=== PATIENT | female | born 1935 | race Caucasian/White ===

== ENCOUNTER 2019-09-01 11:59 | Inpatient (IN) | payer OTHER ==
[2019-09-01 12:29] VITALS: BMI 22.6
--- NOTE | 2019-09-01 13:22 | PDOC ---
History of Present Illness - General Chief Complaint: CVA/TIA Stated Complaint: LT SIDE WEAKNESS Time Seen by Provider: 09/01/19 12:36 - History of Present Illness Initial Comments: Marie Gloria is an 84yo woman with a PMH of NIDDM, HTN, Alzheimers who presents with left-sided weakness and arm shaking today. Ms Gloria is Israeli -speaking and her daughter stated that she would translate. According to her daughter, Ms Gloria was having difficulty walking due to her left side "drooping" this morning; she needed significant assistance to walk as she was falling to the side. The symptoms started at 8:15 this morning. The daughter took the pt to her PMD in [facility], at which point her symptoms were unchanged. The PMD called an ambulance to bring her to the nearest ED, but the pt and her daughter felt the ambulance was taking too long and drove to [facility]. At this time, Ms Gloria's weakness has resolved. However, her daughter notes that her hands are shaking, which she has never seen before. Otherwise, the pt reports that she is feeling well. She denies any numbness, tingling, vertigo, chest pain, difficulty walking, difficulty speaking or changes in voice, or other symptoms. NIH Stroke Scale - Last Known Well Date/Time & Onset Date Last Known Well: 09/01/19 Time Last Known Well: 08:00 - Initial Evaluation Level of consciousness: Alert Ask patient the month and their age: Answers both correctly Ask patient to open & close eyes; make fist and let go: Obeys both correctly Best gaze (horizontal eye movement): Normal Visual field testing: No visual field loss Facial paresis (Show teeth/raise eyebrows/close eyes tight): Normal symmetrical movement Motor Function: Left Arm: Normal Motor Function: Right Arm: Normal (extends arm 90 (or 45) degrees for 10 seconds without drift Motor Function: Left Leg: Normal (extends leg 30 degrees for 5 seconds without drift) Motor Function: Right Leg: Normal (extends leg 30 degrees for 5 seconds without drift) Limb Ataxia: No ataxia Sensory(Use pinprick test arms,legs,trunk,face/side to side): Normal Best language (Describe picture, name items, read sentences): No Aphasia Dysarthria (read several words): Normal articulation Extinction and Inattention: No abnormality - Total Score NIH Stroke Scale Score: 0 Past History - Past Medical History Allergies/Adverse Reactions: Allergies Allergy/AdvReac Type Severity Reaction Status Date / Time No Known Allergies Allergy Verified 09/01/19 12:33 Home Medications: Ambulatory Orders Amlodipine Besylate 5 mg PO DAILY 09/01/19 Aspirin [ASA -] 81 mg PO DAILY 09/01/19 Donepezil HCl 10 mg PO DAILY 09/01/19 Lisinopril/Hydrochlorothiazide [Lisinopril-Hctz 20-12.5 mg Tab] 1 each PO DAILY 09/01/19 Loratadine [Allergy Relief] 10 mg PO DAILY 09/01/19 Metformin HCl [Glucophage] 500 mg PO TID 09/01/19 Multivitamin [One-Daily Multi-Vitamin] 1 each PO DAILY 09/01/19 Simvastatin 20 mg PO HS 09/01/19 Tramadol HCl 50 mg PO TID 09/01/19 COPD: No Diabetes: Yes HTN: Yes - Immunization History Immunization Up to Date: No - Psycho Social/Smoking Cessation Hx Smoking History: Never smoked Have you smoked in the past 12 months: No Information on smoking cessation initiated: No Hx Alcohol Use: No Drug/Substance Use Hx: No Review of Systems - Review of Systems Comments:: General: No fevers, no chills, no weight or appetite change, no malaise HEENT: No changes in vision, no changes in hearing, no congestion, no sore throat CV: No chest pain, no palpitations, no LE edema Pulm: No SOB, no cough, no wheezing GI: No nausea or vomiting, no change in bowel habits, no melena : No frequency, no urgency, no dysuria Musc: No back pain, no joint swelling, no recent injury Skin: No rash, no lesions, no erythema Endo: No excessive thirst, no heat/cold intolerance Heme: No unusual bruising or bleeding, no swollen glands Neuro: See HPI Vasc: No claudication Psych: No recent change in mood, no SI or HI *Physical Exam - Vital Signs Last Vital Signs Temp Pulse Resp BP Pulse Ox 97.9 F 82 16 117/96 96 09/01/19 12:25 09/01/19 12:25 09/01/19 12:25 09/01/19 12:25 09/01/19 12:25 - Physical Exam Comments: General: Comfortable, no acute distress HEENT: PERRL, EOMI, MMM, voice normal, normal neck ROM, visual nuñez intact Cards: RRR, no murmur appreciated Pulm: Comfortable on room air, clear to auscultation bilaterally Abd: Soft, nontender, nondistended Ext: Atraumatic. No LE edema. ROM intact. Strength 5/5 and equal bilaterally Vasc: Extremities WWP. Skin: Normal color, no rashes or lesions Neuro: A&Ox3, CN grossly intact, normal speech, motor/sensory grossly intact and symmetric Psych: Mood appropriate to situation ED Treatment Course - LABORATORY CBC & Chemistry Diagram: 09/01/19 13:15 09/01/19 13:15 - RADIOLOGY Radiology Studies Ordered: Category Date Time Status HEAD CT (STROKE) [CT] Stat CT Scan 09/01/19 12:49 Ordered Medical Decision Making - Medical Decision Making 09/01/19 12:54 Marie Gloria is an 84yo woman with a PMH of NIDDM, HTN, Alzheimers who presents with left-sided weakness and arm shaking today starting at 8:15am. The symptoms have since resolved. - Symptoms appear to have resolved, may be TIA - Code roche called for immediate CT head - CBC, CMP, coags, lipids, trop, EKG, CXR 09/01/19 13:30 - CT head negative for acute changes - Labs pending 09/01/19 14:50 - Call placed to neurology regarding consult, waiting for call back - EKG w/ NSR, HR 66, normal axis, normal intervals, no ST changes - Labs reveiwed. No concerning abnormalities appreciated - Call placed to Dr Israel for admission 09/01/19 15:07 - Dr Israel will accept for admission - Dr Mast returned call for neuro, speaking to Dr Barrientos, will see pt Discussed with Dr Iliana Martini PGY2 Discharge - Discharge Information Problems reviewed: Yes Clinical Impression/Diagnosis: Transient ischemic attack Condition: Stable - Admission Yes - Follow up/Referral - Patient Discharge Instructions - Post Discharge Activity
[2019-09-01 13:42] LABS: BASO % 0.5 % (0-2.0); EOS % 0.5 % (0-4.5); HEMATOCRIT 36.1 % (32.4-45.2); HEMOGLOBIN 11.7 GM/dL (10.7-15.3); LYMPH % 22.2 % (8-40); MCH 26.6 pg (25.7-33.7); MCHC 32.4 g/dl (32.0-36.0); MEAN CELL VOLUME 82.1 fl (80-96); MEAN PLT VOLUME 8.1 fl (7.5-11.1); MONO % 6.5 % (3.8-10.2); NEUT % 70.3 % (42.8-82.8); PLATELET COUNT 299 K/MM3 (134-434); RBC 4.39 M/mm3 (3.60-5.2); RDW 14.3 % (11.6-15.6); WHITE BLOOD COUNT 7.1 K/mm3 (4.0-10.0)
[2019-09-01] MEDS: SODIUM CHLORIDE 1,000 ML IV SCH (13:43)
[2019-09-01 13:58] LABS: INR 1.01 (0.83-1.09); PROTHROMBIN TIME (PATIENT) 11.9 SEC (9.7-13.0)
[2019-09-01 14:01] LABS: ACTIVATED PTT 31.7 SECONDS (25.2-36.5)
[2019-09-01 14:08] LABS: BILIRUBIN,TOTAL 0.6 mg/dL (0.2-1); BLOOD UREA NITROGEN 15.9 mg/dL (7-18); CALCIUM 9.7 mg/dL (8.5-10.1); POTASSIUM 4.7 mmol/L (3.5-5.1); TOT PROT 7.3 g/dl (6.4-8.2)
[2019-09-01 14:10] LABS: CHOLESTEROL 158 mg/dL (50-200)
--- NOTE | 2019-09-01 14:29 | PDOC ---
Attending Attestation - Resident Resident Name: Erin Martini - ED Attending Attestation I have performed the following: I have examined & evaluated the patient, The case was reviewed & discussed with the resident, I agree w/resident's findings & plan, Exceptions are as noted - HPI HPI: 09/01/19 14:22 84yo female with hx of dementia, dm, htn who woke up at 8am and was unable to move her L arm and leg. Pt states symptoms resolved in less than 5 min. Last normal was around 11p last night and woke up feeling L sided weakness. Pt currently denies hoang, weakness, paresthesias, neck pain, cp/sob, abd pain. No n/v /d. No dysuria. Pt denies all other complaints. - Physicial Exam PE: 09/01/19 14:25 Gen: awake, alert, oriented, nad heent: PERRL, EOMI, MMM neck: supple, no midline ttp, no stepoffs, FROM heart: +s1s2 reg lungs: cta b/l abd: soft, nt/nd +bs ext: no c/c/e neuro: cn ii-xii grossly intact, no focal deficits, muscle strength 5/5 UE and LE, normal finger to nose, sensation intact - Medical Decision Making 09/01/19 14:26 a/p: 84yo female with L sided weakness which has since resolved -concern for TIA -sent for head ct - no acute findings -labs pending -ekg -cxr -will monitor and reassess -pt will need a neuro eval and to stay for further eval of tia -no tpa given rapid resolution of symptoms -current NIHSS = 0 09/01/19 14:59 labs reviewed cxr pending no acute findings on head ct concerning for cva call placed to DR. Joseph and to Dr. Israel for admission 09/01/19 15:[address] Hodge who will see the patient in consut resident discussed the case with Dr. Israel who accepts pt to service Heart Score/ECG Review - ECG Intrepretation Comment:: 09/01/19 14:29 sinus at 66, nl axis, nl interval, no acute st/t wave findings
[2019-09-01 15:58] LABS: EPI CELLS 0.5 /HPF (0-5/HPF); HYALINE CASTS 0 /lpf (0-8); URINE APPEARANCE CLEAR; URINE BACTERIA 0.7 /hpf (NEGATIVE); URINE BILIRUBIN NEGATIVE (NEGATIVE); URINE COLOR YELLOW; URINE GLUCOSE (UA) NEGATIVE (NEGATIVE); URINE KETONE NEGATIVE (NEGATIVE); URINE LEUK ESTERASE 2+ (NEGATIVE); URINE NITRITE NEGATIVE (NEGATIVE); URINE PROTEIN NEGATIVE (NEGATIVE); URINE RBC 1 /hpf (0-4); URINE UROBILINOGEN 0.2 mg/dL (0.2-1.0); URINE WBC 5 /hpf (0-5)
--- NOTE | 2019-09-01 18:02 | HP ---
Admitting History and Physical - Primary Care Physician PCP: Adan Israel - Admission History of Present Illness: Marie Gloria is an 84yo woman with a PMH of NIDDM, HTN, Alzheimers who presents with left-sided weakness and arm shaking today. Ms Gloria is Telugu -speaking and her daughter stated that she would translate. Per the daughter, Ms Gloria was having difficulty walking and her left side was "drooping" this morning. The daughter states that the pt's grandson called her stating that these symptoms started at 8:15 this morning. The daughter took Ms Gloria to her PMD, where she was seen at 10am. At that time, her symptoms were unchanged. The pt was having significant difficulty walking and needed to be held up while walking. Her daughter is not aware of any other recent symptoms. - Past Medical History Cardiovascular: Yes: HTN Endocrine: Yes: Diabetes Mellitus - Smoking History Smoking history: Never smoked Have you smoked in the past 12 months: No - Alcohol/Substance Use Hx Alcohol Use: No Home Medications - Allergies Allergies/Adverse Reactions: Allergies Allergy/AdvReac Type Severity Reaction Status Date / Time No Known Allergies Allergy Verified 09/01/19 12:33 - Home Medications Home Medications: Ambulatory Orders Amlodipine Besylate 5 mg PO DAILY 09/01/19 Aspirin [ASA -] 81 mg PO DAILY 09/01/19 Donepezil HCl 10 mg PO DAILY 09/01/19 Lisinopril/Hydrochlorothiazide [Lisinopril-Hctz 20-12.5 mg Tab] 1 each PO DAILY 09/01/19 Loratadine [Allergy Relief] 10 mg PO DAILY 09/01/19 Metformin HCl [Glucophage] 500 mg PO TID 09/01/19 Multivitamin [One-Daily Multi-Vitamin] 1 each PO DAILY 09/01/19 Simvastatin 20 mg PO HS 09/01/19 Tramadol HCl 50 mg PO TID 09/01/19 Physical Examination Vital Signs: Vital Signs Temperature 97.9 F 09/01/19 12:25 Pulse Rate 82 09/01/19 12:25 Respiratory Rate 16 09/01/19 12:25 Blood Pressure 117/96 09/01/19 12:25 O2 Sat by Pulse Oximetry (%) 96 09/01/19 12:25 Constitutional: Yes: No Distress HENT: Yes: Atraumatic Neck: Yes: Supple Cardiovascular: Yes: Regular Rate and Rhythm Respiratory: Yes: CTA Bilaterally Gastrointestinal: Yes: Normal Bowel Sounds Extremities: Yes: WNL Neurological: Yes: Alert, Oriented Labs: CBC, BMP 09/01/19 13:15 09/01/19 13:15 Problem List - Problems (1) Transient ischemic attack Assessment/Plan: doing well neuro consult neuro checks Code(s): G45.9 - TRANSIENT CEREBRAL ISCHEMIC ATTACK, UNSPECIFIED (2) HTN (hypertension) Assessment/Plan: on meds monitor Code(s): I10 - ESSENTIAL (PRIMARY) HYPERTENSION (3) Diabetes Assessment/Plan: on insulin bgms Code(s): E11.9 - TYPE 2 DIABETES MELLITUS WITHOUT COMPLICATIONS Assessment/Plan Laboratory Tests 09/01/19 09/01/19 09/01/19 13:15 13:15 13:15 WBC 7.1 RBC 4.39 Hgb 11.7 Hct 36.1 MCV 82.1 MCH 26.6 MCHC 32.4 RDW 14.3 Plt Count 299 MPV 8.1 Absolute Neuts (auto) 5.0 Neutrophils % 70.3 Lymphocytes % 22.2 Monocytes % 6.5 Eosinophils % 0.5 Basophils % 0.5 Nucleated RBC % 0 PT with INR 11.90 INR 1.01 PTT (Actin FS) 31.7 Sodium Potassium Chloride Carbon Dioxide Anion Gap BUN Creatinine Est GFR (CKD-EPI)AfAm Est GFR (CKD-EPI)NonAf Random Glucose Calcium Total Bilirubin AST ALT Alkaline Phosphatase Creatine Kinase 49 Troponin I < 0.02 Total Protein Albumin Triglycerides Cholesterol 158 Total LDL Cholesterol HDL Cholesterol Urine Color Urine Appearance Urine pH Ur Specific [place] Urine Protein Urine Glucose (UA) Urine Ketones Urine Blood Urine Nitrite Urine Bilirubin Urine Urobilinogen Ur Leukocyte Esterase Urine WBC (Auto) Urine RBC (Auto) Urine Casts (Auto) U Epithel Cells (Auto) Urine Bacteria (Auto) Blood Type Antibody Screen 09/01/19 09/01/19 09/01/19 13:15 13:15 13:15 WBC RBC Hgb Hct MCV MCH MCHC RDW Plt Count MPV Absolute Neuts (auto) Neutrophils % Lymphocytes % Monocytes % Eosinophils % Basophils % Nucleated RBC % PT with INR INR PTT (Actin FS) Sodium 140 Potassium 4.7 Chloride 105 Carbon Dioxide 30 Anion Gap 5 L BUN 15.9 Creatinine 1.0 Est GFR (CKD-EPI)AfAm 60.76 Est GFR (CKD-EPI)NonAf 52.42 Random Glucose 130 H Calcium 9.7 Total Bilirubin 0.6 AST 15 ALT 16 Alkaline Phosphatase 57 Creatine Kinase Troponin I Total Protein 7.3 Albumin 4.0 Triglycerides Cholesterol Total LDL Cholesterol 71 HDL Cholesterol 68 H Urine Color Urine Appearance Urine pH Ur Specific [place] Urine Protein Urine Glucose (UA) Urine Ketones Urine Blood Urine Nitrite Urine Bilirubin Urine Urobilinogen Ur Leukocyte Esterase Urine WBC (Auto) Urine RBC (Auto) Urine Casts (Auto) U Epithel Cells (Auto) Urine Bacteria (Auto) Blood Type Antibody Screen 09/01/19 09/01/19 09/01/19 13:15 13:15 15:06 WBC RBC Hgb Hct MCV MCH MCHC RDW Plt Count MPV Absolute Neuts (auto) Neutrophils % Lymphocytes % Monocytes % Eosinophils % Basophils % Nucleated RBC % PT with INR INR PTT (Actin FS) Sodium Potassium Chloride Carbon Dioxide Anion Gap BUN Creatinine Est GFR (CKD-EPI)AfAm Est GFR (CKD-EPI)NonAf Random Glucose Calcium Total Bilirubin AST ALT Alkaline Phosphatase Creatine Kinase Troponin I Total Protein Albumin Triglycerides 108 Cholesterol Total LDL Cholesterol HDL Cholesterol Urine Color Yellow Urine Appearance Clear Urine pH 8.0 Ur Specific [place] 1.007 L Urine Protein Negative Urine Glucose (UA) Negative Urine Ketones Negative Urine Blood Negative Urine Nitrite Negative Urine Bilirubin Negative Urine Urobilinogen 0.2 Ur Leukocyte Esterase 2+ H Urine WBC (Auto) 5 Urine RBC (Auto) 1 Urine Casts (Auto) 0 U Epithel Cells (Auto) 0.5 Urine Bacteria (Auto) 0.7 Blood Type A POSITIVE Antibody Screen Negative Active Medications Generic Name Dose Route Start Last Admin Trade Name Charisma PRN Reason Stop Dose Admin Sodium Chloride 1,000 mls @ 42 mls/hr 09/01/19 13:00 09/01/19 13:43 Normal Saline - IV 42 mls/hr ASDIR GABE Administration Active Medications Generic Name Dose Route Start Last Admin Trade Name Freq PRN Reason Stop Dose Admin Amlodipine Besylate 5 mg 09/02/19 10:00 09/02/19 10:36 Norvasc - PO 5 mg DAILY GABE Administration Aspirin 81 mg 09/02/19 10:00 09/02/19 10:37 Asa - PO 81 mg DAILY GABE Administration Donepezil HCl 10 mg 09/02/19 10:00 09/02/19 10:36 Aricept - PO 10 mg DAILY GABE Administration Hydrochlorothiazide 12.5 mg 09/02/19 10:00 09/02/19 10:36 Hctz - PO 12.5 mg DAILY GABE Administration Lisinopril 20 mg 09/02/19 10:00 09/02/19 10:36 Prinivil PO 20 mg DAILY GABE Administration Metformin HCl 500 mg 09/01/19 22:00 09/02/19 17:14 Glucophage - PO 500 mg TIDAC GABE Administration
--- NOTE | 2019-09-01 19:21 | CON.NEURO ---
Consult Consult Specialty:: NEUROLOGY-GUNJAN DÍAZ - History of Present Illness History of Present Illness: Marie Gloria is an 84yo woman with a PMH of NIDDM, HTN, Alzheimers who presents with left-sided weakness and arm shaking today. Ms Gloria is Sinhala -speaking and her daughter stated that she would translate. Per the daughter, Ms Gloria was having difficulty walking and her left side was "drooping" this morning. The daughter states that the pt's grandson called her stating that these symptoms started at 8:15 this morning. The daughter took Ms Gloria to her PMD, where she was seen at 10am. At that time, her symptoms were unchanged. The pt was having significant difficulty walking and needed to be held up while walking. Her daughter is not aware of any other recent symptoms. Denies all neurologic complaints now, daughter tells me she has remitted completely. - Alcohol/Substance Use Hx Alcohol Use: No - Smoking History Smoking history: Never smoked Have you smoked in the past 12 months: No Home Medications - Allergies Allergies/Adverse Reactions: Allergies Allergy/AdvReac Type Severity Reaction Status Date / Time No Known Allergies Allergy Verified 09/01/19 12:33 - Home Medications Home Medications: Ambulatory Orders Amlodipine Besylate 5 mg PO DAILY 09/01/19 Aspirin [ASA -] 81 mg PO DAILY 09/01/19 Donepezil HCl 10 mg PO DAILY 09/01/19 Lisinopril/Hydrochlorothiazide [Lisinopril-Hctz 20-12.5 mg Tab] 1 each PO DAILY 09/01/19 Loratadine [Allergy Relief] 10 mg PO DAILY 09/01/19 Metformin HCl [Glucophage] 500 mg PO TID 09/01/19 Multivitamin [One-Daily Multi-Vitamin] 1 each PO DAILY 09/01/19 Simvastatin 20 mg PO HS 09/01/19 Tramadol HCl 50 mg PO TID 09/01/19 Physical Exam-Neuro Vital Signs: Vital Signs Temperature 97.9 F 09/01/19 12:25 Pulse Rate 82 09/01/19 12:25 Respiratory Rate 16 09/01/19 12:25 Blood Pressure 117/96 09/01/19 12:25 O2 Sat by Pulse Oximetry (%) 96 09/01/19 12:25 Labs: CBC, BMP 09/01/19 13:15 09/01/19 13:15 INR, PTT INR 1.01 (0.83-1.09) 09/01/19 13:15 - Neuro Exam Level Of Consciousness: Yes: Alert, Oriented to Person Eyes: Yes: JOELLEN Speech: WNL Mini Mental Exam: Impaired cognition-STM/concentration impaired DTR's: 0 Right Achilles ( bilat knees-2+), 1+ Left Bicep, 1+ Right Bicep, 1+ Left Tricep, 1+ Right Tricep, 1+ Left Brachioradialis, 1+ Right Brachioradialis , 1+ Left Achilles Motor Strength: 5/5: Left Arm, Right Arm, Left Leg, Right Leg Gait: Other (unsteady, tends to tilt to left) Imaging - Results Cat Scan: Report Reviewed (plenum sphen.meningioma only.) Assessment/Plan Transient left sided weakness, likely pure motor right subcort TIA, less likely left cerebellar location TIA Suggest: MRI brain/Carotud ultrasound ASA 81mg daily. Thank you, Carin Hodge MD
[2019-09-01] MEDS ORDERED: metFORMIN HCL 500 MG TABLET (FP) ONE (22:40)
[2019-09-01] MEDS: metFORMIN HCL 500 MG TABLET (FP) PO SCH (23:02)
[2019-09-02] MEDS: metFORMIN HCL 500 MG TABLET (FP) PO SCH ×3 (06:29→17:14)
[2019-09-02] MEDS ORDERED: PATIENT'S OWN MEDICATION (NON-FORMULARY) (Lisinopril/Hydrochlorothiazide [Lisinopril-Hctz PO SCH (10:00)
[2019-09-02] MEDS: HYDROCHLOROTHIAZIDE 12.5 MG CAPSULE (FP) PO SCH (10:36)
[2019-09-02] MEDS: amLODIPine BESYLATE 5 MG TABLET (FP) PO SCH (10:36)
[2019-09-02] MEDS: LISINOPRIL 20 MG TABLET (FP) PO SCH (10:36)
[2019-09-02] MEDS: DONEPEZIL HCL 10 MG TABLET (FP) PO SCH (10:36)
[2019-09-02] MEDS: ASPIRIN 81 MG CHEWABLE TABLETS PO SCH (10:37)
--- NOTE | 2019-09-02 10:41 | EKG ---
Test Reason : Blood Pressure : / mmHG Vent. Rate : 066 BPM Atrial Rate : 066 BPM P-R Int : 128 ms QRS Dur : 074 ms QT Int : 404 ms P-R-T Axes : 056 038 061 degrees QTc Int : 423 ms NORMAL SINUS RHYTHM NORMAL ECG Confirmed by MD ROXY, EARNEST ([id number]) on 09/02/2019 10:41:15 AM Referred By: Confirmed By:EARNEST RAMSEY MD
--- NOTE | 2019-09-02 12:20 | PN ---
Progress Note, Physician - Current Medication List Current Medications: Active Medications Amlodipine Besylate (Norvasc -) 5 mg PO DAILY [facility] Last Admin: 09/02/19 10:36 Dose: 5 mg Aspirin (Asa -) 81 mg PO DAILY [facility] Last Admin: 09/02/19 10:37 Dose: 81 mg Donepezil HCl (Aricept -) 10 mg PO DAILY [facility] Last Admin: 09/02/19 10:36 Dose: 10 mg Hydrochlorothiazide (Hctz -) 12.5 mg PO DAILY [facility] Last Admin: 09/02/19 10:36 Dose: 12.5 mg Sodium Chloride (Normal Saline -) 1,000 mls @ 42 mls/hr IV ASDIR [facility] Last Admin: 09/01/19 13:43 Dose: 42 mls/hr Lisinopril (Prinivil) 20 mg PO DAILY [facility] Last Admin: 09/02/19 10:36 Dose: 20 mg Metformin HCl (Glucophage -) 500 mg PO TIDAC [facility] Last Admin: 09/02/19 10:36 Dose: 500 mg - Objective Vital Signs: Vital Signs Temperature 98.2 F 09/02/19 08:38 Pulse Rate 90 09/02/19 08:38 Respiratory Rate 18 09/02/19 08:38 Blood Pressure 153/76 09/02/19 08:38 O2 Sat by Pulse Oximetry (%) 97 09/02/19 10:00 Constitutional: Yes: No Distress HENT: Yes: Atraumatic Neck: Yes: Supple Cardiovascular: Yes: Regular Rate and Rhythm Respiratory: Yes: CTA Bilaterally Gastrointestinal: Yes: Normal Bowel Sounds Extremities: Yes: WNL Edema: No Peripheral Pulses WNL: Yes Neurological: Yes: Alert, Oriented Labs: CBC, BMP 09/01/19 13:15 09/01/19 13:15 INR, PTT INR 1.01 (0.83-1.09) 09/01/19 13:15 Problem List - Problems (1) Transient ischemic attack Assessment/Plan: doing well neuro consult neuro checks Code(s): G45.9 - TRANSIENT CEREBRAL ISCHEMIC ATTACK, UNSPECIFIED (2) Diabetes Assessment/Plan: on insulin bgms Code(s): E11.9 - TYPE 2 DIABETES MELLITUS WITHOUT COMPLICATIONS (3) HTN (hypertension) Assessment/Plan: on meds monitor Code(s): I10 - ESSENTIAL (PRIMARY) HYPERTENSION
[2019-09-02] MEDS: SODIUM CHLORIDE 1,000 ML IV SCH (17:16)
[2019-09-03] MEDS: metFORMIN HCL 500 MG TABLET (FP) PO SCH ×3 (07:01→17:28)
[2019-09-03] MEDS: DONEPEZIL HCL 10 MG TABLET (FP) PO SCH (10:41)
[2019-09-03] MEDS: HYDROCHLOROTHIAZIDE 12.5 MG CAPSULE (FP) PO SCH (10:41)
[2019-09-03] MEDS: LISINOPRIL 20 MG TABLET (FP) PO SCH (10:41)
[2019-09-03] MEDS: ASPIRIN 81 MG CHEWABLE TABLETS PO SCH (10:41)
[2019-09-03] MEDS: amLODIPine BESYLATE 5 MG TABLET (FP) PO SCH (10:41)
[2019-09-03] MEDS ORDERED: ACETAMINOPHEN 325 MG TABLET (FP) PO PRN (13:22)
--- NOTE | 2019-09-03 14:49 | PN ---
Progress Note, Physician - Current Medication List Current Medications: Active Medications Acetaminophen (Tylenol -) 650 mg PO Q6H PRN PRN Reason: PAIN 1-5 Amlodipine Besylate (Norvasc -) 5 mg PO DAILY [facility] Last Admin: 09/03/19 10:41 Dose: 5 mg Aspirin (Asa -) 81 mg PO DAILY [facility] Last Admin: 09/03/19 10:41 Dose: 81 mg Donepezil HCl (Aricept -) 10 mg PO DAILY [facility] Last Admin: 09/03/19 10:41 Dose: 10 mg Hydrochlorothiazide (Hctz -) 12.5 mg PO DAILY [facility] Last Admin: 09/03/19 10:41 Dose: 12.5 mg Lisinopril (Prinivil) 20 mg PO DAILY [facility] Last Admin: 09/03/19 10:41 Dose: 20 mg Metformin HCl (Glucophage -) 500 mg PO TIDAC [facility] Last Admin: 09/03/19 10:41 Dose: 500 mg - Objective Vital Signs: Vital Signs Temperature 98.2 F 09/03/19 10:37 Pulse Rate 90 09/03/19 10:37 Respiratory Rate 18 09/03/19 10:37 Blood Pressure 140/67 09/03/19 10:37 O2 Sat by Pulse Oximetry (%) 97 09/03/19 10:00 Constitutional: Yes: No Distress HENT: Yes: Atraumatic Neck: Yes: Supple Cardiovascular: Yes: Regular Rate and Rhythm Respiratory: Yes: CTA Bilaterally Gastrointestinal: Yes: Normal Bowel Sounds Extremities: Yes: WNL Edema: No Neurological: Yes: Alert, Oriented Labs: CBC, BMP 09/01/19 13:15 09/01/19 13:15 INR, PTT INR 1.01 (0.83-1.09) 09/01/19 13:15 Problem List - Problems (1) Transient ischemic attack Assessment/Plan: doing well Code(s): G45.9 - TRANSIENT CEREBRAL ISCHEMIC ATTACK, UNSPECIFIED (2) Diabetes Assessment/Plan: on insulin bgms Code(s): E11.9 - TYPE 2 DIABETES MELLITUS WITHOUT COMPLICATIONS (3) HTN (hypertension) Assessment/Plan: on meds monitor Code(s): I10 - ESSENTIAL (PRIMARY) HYPERTENSION
--- NOTE | 2019-09-03 23:08 | PN ---
Progress Note, Physician History of Present Illness: Marie Gloria is an 84yo woman with a PMH of NIDDM, HTN, Alzheimers who presents with left-sided weakness and arm shaking today. Ms Gloria is Haitian -speaking and her daughter stated that she would translate. Per the daughter, Ms Gloria was having difficulty walking and her left side was "drooping" this morning. The daughter states that the pt's grandson called her stating that these symptoms started at 8:15 this morning. The daughter took Ms Gloria to her PMD, where she was seen at 10am. At that time, her symptoms were unchanged. The pt was having significant difficulty walking and needed to be held up while walking. Her daughter is not aware of any other recent symptoms. Denies all neurologic complaints now, daughter tells me she has remitted completely. 09/03/19 Reports she feels well, is able to ambulate to toilet but noted to have slight LLE "dragging". Exam- LLE-5-/5, rest v5/5 MRI brain reviewed- ?? acute right subcortical lacunar infarct, i am not clear whether it is old/new(unable to bring up DWI sequence), await official report. Would cont. ASA 81mg daily, able to be d/melissa. Thank you, Carin Hodge MD - Current Medication List Current Medications: Active Medications Acetaminophen (Tylenol -) 650 mg PO Q6H PRN PRN Reason: PAIN 1-5 Amlodipine Besylate (Norvasc -) 5 mg PO DAILY [facility] Last Admin: 09/03/19 10:41 Dose: 5 mg Aspirin (Asa -) 81 mg PO DAILY [facility] Last Admin: 09/03/19 10:41 Dose: 81 mg Donepezil HCl (Aricept -) 10 mg PO DAILY [facility] Last Admin: 09/03/19 10:41 Dose: 10 mg Hydrochlorothiazide (Hctz -) 12.5 mg PO DAILY [facility] Last Admin: 09/03/19 10:41 Dose: 12.5 mg Lisinopril (Prinivil) 20 mg PO DAILY [facility] Last Admin: 09/03/19 10:41 Dose: 20 mg Metformin HCl (Glucophage -) 500 mg PO TIDAC [facility] Last Admin: 09/03/19 17:28 Dose: 500 mg - Objective Vital Signs: Vital Signs Temperature 98.1 F 09/03/19 22:00 Pulse Rate 76 09/03/19 22:00 Respiratory Rate 18 09/03/19 22:00 Blood Pressure 138/60 09/03/19 22:00 O2 Sat by Pulse Oximetry (%) 96 09/03/19 21:00 Labs: CBC, BMP 09/01/19 13:15 09/01/19 13:15 INR, PTT INR 1.01 (0.83-1.09) 09/01/19 13:15
[2019-09-04] MEDS: metFORMIN HCL 500 MG TABLET (FP) PO SCH ×2 (06:19→12:05)
[2019-09-04 07:39] LABS: BASO % 0.7 % (0-2.0); EOS % 1.6 % (0-4.5); HEMATOCRIT 34.7 % (32.4-45.2); HEMOGLOBIN 11.4 GM/dL (10.7-15.3); LYMPH % 25.7 % (8-40); MCH 26.6 pg (25.7-33.7); MCHC 32.8 g/dl (32.0-36.0); MEAN CELL VOLUME 81.2 fl (80-96); MEAN PLT VOLUME 8.8 fl (7.5-11.1); MONO % 7.5 % (3.8-10.2); NEUT % 64.5 % (42.8-82.8); PLATELET COUNT 281 K/MM3 (134-434); RBC 4.27 M/mm3 (3.60-5.2); RDW 14.3 % (11.6-15.6); WHITE BLOOD COUNT 7.9 K/mm3 (4.0-10.0)
[2019-09-04 08:34] LABS: ALBUMIN 3.6 g/dl (3.4-5.0); BILIRUBIN,TOTAL 0.5 mg/dL (0.2-1); BLOOD UREA NITROGEN 26.6 mg/dL (7-18); CALCIUM 9.5 mg/dL (8.5-10.1); POTASSIUM 4.6 mmol/L (3.5-5.1); TOT PROT 6.7 g/dl (6.4-8.2)
[2019-09-04 09:24] VITALS: BP 141/67; PULSE 96; TEMP 98.1
[2019-09-04] MEDS: DONEPEZIL HCL 10 MG TABLET (FP) PO SCH (09:25)
[2019-09-04] MEDS: HYDROCHLOROTHIAZIDE 12.5 MG CAPSULE (FP) PO SCH (09:25)
[2019-09-04] MEDS: LISINOPRIL 20 MG TABLET (FP) PO SCH (09:25)
[2019-09-04] MEDS: amLODIPine BESYLATE 5 MG TABLET (FP) PO SCH (09:25)
[2019-09-04] MEDS: ASPIRIN 81 MG CHEWABLE TABLETS PO SCH (09:25)
--- NOTE | 2019-09-04 16:34 | DS ---
Physical Examination Vital Signs: Vital Signs Temperature 98.1 F 09/04/19 09:24 Pulse Rate 96 H 09/04/19 09:24 Respiratory Rate 18 09/04/19 09:24 Blood Pressure 141/67 09/04/19 09:24 O2 Sat by Pulse Oximetry (%) 98 09/04/19 09:00 HENT: Yes: Atraumatic Neck: Yes: Supple Cardiovascular: Yes: Regular Rate and Rhythm Respiratory: Yes: CTA Bilaterally Gastrointestinal: Yes: Normal Bowel Sounds Extremities: Yes: WNL Edema: No Neurological: Yes: Alert, Oriented Labs: CBC, BMP 09/04/19 06:25 09/04/19 06:25 Discharge Summary Problems reviewed: Yes Reason For Visit: TIA Condition: Stable - Instructions Referrals: Ramon Hodge MD [Staff Physician] - ON STAFF,NOT [Primary Care Provider] - Disposition: VNS/HOME HEALTH CARE - Home Medications Comprehensive Discharge Medication List: Ambulatory Orders Amlodipine Besylate 5 mg PO DAILY 09/01/19 Aspirin [ASA -] 81 mg PO DAILY 09/01/19 Donepezil HCl 10 mg PO DAILY 09/01/19 Lisinopril/Hydrochlorothiazide [Lisinopril-Hctz 20-12.5 mg Tab] 1 each PO DAILY 09/01/19 Loratadine [Allergy Relief] 10 mg PO DAILY 09/01/19 Metformin HCl [Glucophage] 500 mg PO TID 09/01/19 Multivitamin [One-Daily Multi-Vitamin] 1 each PO DAILY 09/01/19 Simvastatin 20 mg PO HS 09/01/19 Tramadol HCl 50 mg PO TID 09/01/19 cleared by neuro to be dc
== END 2019-09-04 13:30 | disposition home health service (06) | DRG 69 ==
LOC: JER 11:59 → JERBED 15:07 → J4S 23:00
PROVIDERS: ADMIT Internal Medicine; ATTEND Internal Medicine
DX: G45.9 Transient cerebral ischemic attack, unspecified (principal); I10 Essential (primary) hypertension; E11.9 Type 2 diabetes mellitus without complications; G30.9 Alzheimer's disease, unspecified; F02.80 Dementia in other diseases classified elsewhere, unspecified severity, without behavioral disturbance, psychotic disturbance, mood disturbance, and anxiety; Z79.84 Long term (current) use of oral hypoglycemic drugs
CPT/HCPCS: 36415; 70450-TC; 70551-TC; 71045-TC-FY; 80053; 81003; 82465; 82550; 83718; 83721; 84478; 84484; 85025; 85610; 85730; 86850; 86900; 86901; 87086; 93005; 93010; 93880-TC; 97116-GP; 97162-GP; 99285-25; J7030

== ENCOUNTER 2019-10-20 12:52 | Inpatient (IN) | payer OTHER ==
[2019-10-20 12:56] VITALS: BMI 22.4
--- NOTE | 2019-10-20 13:06 | PDOC ---
History of Present Illness - General Chief Complaint: Allergic Reaction Stated Complaint: LIP SWOLLEN Time Seen by Provider: 10/20/19 13:06 - History of Present Illness Initial Comments: 10/20/19 13:41 84 year old woman with upper lip swelling and difficulty swallowing that started at 0900 when she woke up. The patient has taken lisinopril for years. She had a prior episode of same symptoms on 09/16/19 that resolved after 2 days and at that time did not have any difficulty swallowing. Since onset she has some voice changes per daughter, notices her voice is deeper and raspy. Patient denies any difficulty breathing but has some difficulty swallowing water this morning. She has no other complaints. ROS GENERAL/CONSTITUTIONAL: No fever or chills. No weakness. HEAD, EYES, EARS, NOSE AND THROAT: + changes in swallowing CARDIOVASCULAR: No chest pain or shortness of breath RESPIRATORY: No cough, wheezing, or hemoptysis. GASTROINTESTINAL: No nausea, vomiting, diarrhea or constipation. GENITOURINARY: No dysuria, frequency, or change in urination. MUSCULOSKELETAL: No joint or muscle swelling or pain. No neck or back pain. SKIN: No rash NEUROLOGIC: No headache, vertigo, loss of consciousness, or change in strength/ sensation. ENDOCRINE: No increased thirst. No abnormal weight change HEMATOLOGIC/LYMPHATIC: No anemia, easy bleeding, or history of blood clots. PE GENERAL: Awake, alert, and fully oriented, in no acute distress HEAD: No signs of trauma, normocephalic, atraumatic EYES: EOMI, sclera anicteric, conjunctiva clear ENT: No uvula edema or deviation FACE: upper lip edema with bilateral cheek swelling NECK: Normal ROM, supple LUNGS: No distress, speaks full sentences, clear to auscultation bilaterally No stridor HEART: Regular rate and rhythm, normal S1 and S2, no murmurs, rubs or gallops, peripheral pulses normal and equal bilaterally. ABDOMEN: Soft, nontender No guarding, no rebound. No masses EXTREMITIES : Normal inspection, Normal range of motion, no edema. No clubbing or cyanosis. NEUROLOGICAL: Cranial nerves II through XII grossly intact. Normal speech, normal gait, no focal sensorimotor deficits SKIN: Warm, Dry, normal turgor, no rashes or lesions noted MDM DDX including but not limited to: angioedema ED Course: Will observe and dose ffp and txa ENT paged, informed of patient have no current recs, cont obs and ffp on reassessment patient with further vocal changes and drooling will need intubation as symptoms continue to progress discussed with patient and daughter who agree to plan Anesthesia paged for intubation Patient intubated by Anesthesiologist mandy and etomidate with propofol post intubation tube confirmed by capnography and auscultation poending confirmatory CXR Lanette Mcmahon, PGY2 Emergency Medicine Past History - Past Medical History Allergies/Adverse Reactions: Allergies Allergy/AdvReac Type Severity Reaction Status Date / Time No Known Allergies Allergy Verified 09/01/19 12:33 Home Medications: Ambulatory Orders Amlodipine Besylate 5 mg PO DAILY 09/01/19 Aspirin [ASA -] 81 mg PO DAILY 09/01/19 Donepezil HCl 10 mg PO DAILY 09/01/19 Lisinopril/Hydrochlorothiazide [Lisinopril-Hctz 20-12.5 mg Tab] 1 each PO DAILY 09/01/19 Loratadine [Allergy Relief] 10 mg PO DAILY 09/01/19 Metformin HCl [Glucophage] 500 mg PO TID 09/01/19 Multivitamin [One-Daily Multi-Vitamin] 1 each PO DAILY 09/01/19 Simvastatin 20 mg PO HS 09/01/19 Tramadol HCl 50 mg PO TID 09/01/19 COPD: No Dementia: Yes (Alzheimers) Diabetes: Yes HTN: Yes - Immunization History Immunization Up to Date: No - Psycho Social/Smoking Cessation Hx Smoking History: Never smoked Have you smoked in the past 12 months: No Hx Alcohol Use: No Drug/Substance Use Hx: No *Physical Exam - Vital Signs Last Vital Signs Temp Pulse Resp BP Pulse Ox 98.3 F 77 16 150/55 L 100 10/20/19 12:54 10/20/19 12:54 10/20/19 12:54 10/20/19 12:54 10/20/19 12:54 ED Treatment Course - LABORATORY CBC & Chemistry Diagram: 10/20/19 13:45 10/20/19 13:45 Discharge - Follow up/Referral Referrals: Joshua Nuñez MD [Primary Care Provider] - - Patient Discharge Instructions - Post Discharge Activity
[2019-10-20] MEDS ORDERED: DEXAMETHASONE SOD PHOSPHATE 10 MG/1 ML VIAL IVPUSH ONE (13:20)
[2019-10-20] MEDS ORDERED: TRANEXAMIC ACID 1000 MG/10 ML VIAL IVPUSH ONE (13:24)
[2019-10-20] MEDS ORDERED: TRANEXAMIC ACID 1000 MG/10 ML VIAL ONE (13:28)
[2019-10-20] MEDS ORDERED: DEXAMETHASONE SOD PHOSPHATE 10 MG/1 ML VIAL ONE (13:28)
--- NOTE | 2019-10-20 13:42 | PDOC ---
Attending Attestation - Resident Resident Name: Lanette Mcmahon - ED Attending Attestation I have performed the following: I have examined & evaluated the patient, The case was reviewed & discussed with the resident, I agree w/resident's findings & plan, Exceptions are as noted - HPI HPI: 10/20/19 13:25 84-year-old female history of hypertension on lisinopril presenting with a complaint of facial swelling. Patient has been on lisinopril for many years but she notes that in early September she had an episode of facial swelling that she did not get attention for that was spontaneous resolved on its own. However today when she woke up she noticed that she had swelling of her upper lip that is gradually been getting worse. Per the daughter the patient voice also seems to car changer the last several hours it sounded normal several hours ago, however now is a little bit more raspy. The patient denies any other symptoms including difficulty breathing, nausea, vomiting, chest pain, shortness of breath. She does note it is slightly more difficult to swallow. Exam: GENERAL: The patient is awake, alert, and fully oriented, Nontoxic - in no acute distress. HEAD: Normocephalic, atraumatic. EYES: extraocular movements intact, sclera anicteric, conjunctiva clear. ENT: Normal voice, Moist mucous membranes. angioedema of upper lip/cheeks, posterior pharynx is clear, pt with raspy voice, no stridor NECK: Normal range of motion, supple LUNGS: Breath sounds equal, clear to auscultation bilaterally. No wheezes, no rhonchi, no rales. HEART: Regular rate and rhythm, normal S1 and S2 without murmur, rub or gallop. ABDOMEN: Soft, nontender, No guarding, no rebound. No CVA tenderness EXTREMITIES: Normal range of motion, no edema. NEUROLOGICAL: No facial assymetry, Normal speech, PSYCH: Normal mood, normal affect. SKIN: Warm, Dry, normal turgor, Concern for JOSÉ LUIS inhibitor inhibitor induced angioedema Patient's swelling does seem to be getting worse over the last several hours, will start the patient on FFP, steroids will closely monitor the patient. 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 Low threshold to intubate if there is any worsening If we are unable to secure ENT will transfer the patient for further management - Physicial Exam PE: 10/23/19 19:41 see above - Critical Care Time Total Critical Care Time: 45 Critical Care Statement: The care of this patient involved high complexity decision making to prevent further life threatening deterioration of the patient 's condition and/or to evaluate & treat vital organ system(s) failure or risk of failure. - Medical Decision Making 10/20/19 15:54 The pts raspy voice / throat clearing/discofmort was worsening so decidsion was made to intubate the patient. Anesthsia was consulted for air way managment due to anticipation of possible edemadous vocal cords. pt was intubated successfully on first pass by anesthesia. will sedate pt with propofol. will admit to the ICU
[2019-10-20 14:04] LABS: BASO % 1.1 % (0-2.0); EOS % 1.8 % (0-4.5); HEMATOCRIT 34.5 % (32.4-45.2); HEMOGLOBIN 10.9 GM/dL (10.7-15.3); LYMPH % 11.7 % (8-40); MCH 25.9 pg (25.7-33.7); MCHC 31.6 g/dl (32.0-36.0); MEAN PLT VOLUME 7.9 fl (7.5-11.1); MONO % 7.8 % (3.8-10.2); NEUT % 77.6 % (42.8-82.8); PLATELET COUNT 475 K/MM3 (134-434); RBC 4.21 M/mm3 (3.60-5.2); RDW 14.5 % (11.6-15.6); WHITE BLOOD COUNT 10.7 K/mm3 (4.0-10.0)
[2019-10-20 14:57] LABS: ALBUMIN 3.4 g/dl (3.4-5.0); BILIRUBIN,TOTAL 0.2 mg/dL (0.2-1); BLOOD UREA NITROGEN 22.5 mg/dL (7-18); CALCIUM 9.5 mg/dL (8.5-10.1); POTASSIUM 4.9 mmol/L (3.5-5.1); TOT PROT 7.5 g/dl (6.4-8.2)
[2019-10-20] MEDS ORDERED: ETOMIDATE 20 MG/10 ML AMPUL IVPUSH ONE (15:36)
[2019-10-20] MEDS ORDERED: SUCCINYLCHOLINE CHLORIDE 200 MG/10 ML VIAL IVPUSH ONE (15:36)
[2019-10-20] MEDS ORDERED: RAPID SEQUENCE INTUBATION KIT NR ONE (15:37)
[2019-10-20] MEDS ORDERED: PROPOFOL 1,000,000 MCG/100 ML VIAL ONE (15:41)
[2019-10-20] MEDS ORDERED: fentaNYL CITRATE 250 MCG/5 ML VIAL ONE ×3 (16:08→21:28)
[2019-10-20] MEDS ORDERED: FENTANYL INJECTION 500 MCG in DEXTROSE 5%-WATER - 90 ML IVPB SCH ×2 (16:15→18:00)
--- NOTE | 2019-10-20 16:56 | CONSULT ---
Consultation: REQUESTING PROVIDER: CONSULT REQUEST: We have been asked to medically evaluate this patient for intubation s/p angioedema HISTORY OF PRESENT ILLNESS: Pt is an 84 yo F with PMH of NIDDM, HTN, Alzheimers, TIA (Lsided) presenting from home with swelling of mouth and face and difficulty swallowing after waking up this am. Per daughter by the bedside pt woke up this am with swollen mouth. Was initially able to talk to her via video chat initially. By the time the daughter arrived home, her voice had become raspy and pt was unable to swallow her food. No prior fevers, no known allergies, no rashes. Per pts daughter, pt had a similar episode of swollen lip and face 09/16/19 which resolved after 3 days without treatment. Pt has been on lisinopril for over 20 years without any side effects. Never smoked , no hx of asthma, no drug use. Pt recently had modification to dementia meds, and has been on lisinopril- HCTZ. Pt reported to be up to date with mammography (last year), colonsoscopy (5 years ago) per daughter. In ED, pt received FFP and transexamic acid. Pt was intubated in the ED via direct laryngoscopy. No report of laryngeal edema REVIEW OF SYSTEMS: Unable to obtain PHYSICAL EXAMINATION Vital Signs - 24 hr 10/20/19 10/20/19 10/20/19 12:54 14:43 15:11 Temperature 98.3 F 98.2 F Pulse Rate 77 Pulse Rate [ 73 Left Radial] Respiratory 16 16 Rate Blood Pressure 150/55 L Blood Pressure 140/67 [Left Arm] O2 Sat by Pulse 100 100 100 Oximetry (%) 10/20/19 16:11 Temperature Pulse Rate Pulse Rate [ Left Radial] Respiratory 14 Rate Blood Pressure Blood Pressure [Left Arm] O2 Sat by Pulse Oximetry (%) GENERAL: Awake, [id number]/30/5 HEAD: Normal with no signs of trauma. Swollen lips, swollen jaw with some erythema, no tongue swelling, no drooling EYES: Pupils equal, round and reactive to light EARS, NOSE, THROAT: ETT LUNGS: No stridor, b/l wheezes HEART: Regular rate and rhythm, normal S1 and S2 without murmur, rub or gallop. ABDOMEN: Soft, nontender, not distended, normoactive bowel sounds, no guarding, no rebound, no masses. MUSCULOSKELETAL: Normal range of motion at all joints. No bony deformities or tenderness. No CVA tenderness. LOWER EXTREMITIES: 2+ pulses, warm, well-perfused. No calf tenderness. No peripheral edema. NEUROLOGICAL: Awake, able to obey commands, overbreathing vent SKIN: Warm, dry, normal turgor, no rashes or lesions noted. CBC, BMP 10/20/19 13:45 10/20/19 13:45 Laboratory Results - last 24 hr 10/20/19 10/20/19 10/20/19 13:45 13:45 13:45 WBC 10.7 H RBC 4.21 Hgb 10.9 Hct 34.5 MCV 82.0 MCH 25.9 MCHC 31.6 L RDW 14.5 Plt Count 475 H D MPV 7.9 D Absolute Neuts (auto) 8.3 H Neutrophils % 77.6 D Lymphocytes % 11.7 D Monocytes % 7.8 Eosinophils % 1.8 Basophils % 1.1 Nucleated RBC % 0 Sodium 137 Potassium 4.9 Chloride 101 Carbon Dioxide 29 Anion Gap 7 L BUN 22.5 H Creatinine 1.0 Est GFR (CKD-EPI)AfAm 60.76 Est GFR (CKD-EPI)NonAf 52.42 Random Glucose 119 H Calcium 9.5 Total Bilirubin 0.2 AST 18 ALT 21 Alkaline Phosphatase 79 Total Protein 7.5 Albumin 3.4 Blood Type A POSITIVE Antibody Screen Negative Active Medications Generic Name Dose Route Start Last Admin Trade Name Freq PRN Reason Stop Dose Admin Fentanyl 500 mcg/ Dextrose 100 mls @ 10 mls/hr 10/20/19 16:15 10/20/19 16:30 IVPB 50 mcg/hr TITR GABE 10 mls/hr Administration 50 MCG/HR Ambulatory Orders Amlodipine Besylate 5 mg PO DAILY 09/01/19 Aspirin [ASA -] 81 mg PO DAILY 09/01/19 Donepezil HCl 10 mg PO DAILY 09/01/19 Lisinopril/Hydrochlorothiazide [Lisinopril-Hctz 20-12.5 mg Tab] 1 each PO DAILY 09/01/19 Loratadine [Allergy Relief] 10 mg PO DAILY 09/01/19 Metformin HCl [Glucophage] 500 mg PO TID 09/01/19 Multivitamin [One-Daily Multi-Vitamin] 1 each PO DAILY 09/01/19 Simvastatin 20 mg PO HS 09/01/19 Tramadol HCl 50 mg PO TID 09/01/19 Current Medications Chlorhexidine Gluconate (Hibiclens For Decolonization -) 1 applic TP HS [facility] Diphenhydramine HCl (Benadryl Injection -) 25 mg IVPUSH DAILY [facility] Enoxaparin Sodium (Lovenox -) 40 mg SQ DAILY [facility] Hydrocortisone Sodium Succinate (Solu-Cortef -) 50 mg IVPUSH Q8H [facility] Fentanyl 500 mcg/ Dextrose 100 mls @ 10 mls/hr IVPB TITR [facility] Last Admin: 10/20/19 16:30 Dose: 50 mcg/hr, 10 mls/hr Famotidine/Sodium Chloride (Pepcid 20 Mg Premixed Ivpb -) 20 mg in 50 mls @ 100 mls/hr IVPB BID [facility] Propofol (Diprivan -) 1,000,000 mcg in 100 mls @ 9.389 mls/hr IVPB TITR GABE; Protocol Fentanyl 500 mcg/ Dextrose 100 mls @ 5 mls/hr IVPB TITR GABE Propofol (Diprivan -) 1,000,000 mcg in 100 mls @ 1.565 mls/hr IVPB TITR GABE; Protocol Mupirocin (Bactroban Ointment (For Decolonization) -) 1 applic NS BID [facility] Stop: 10/25/19 21:59 ASSESSMENT/PLAN: Pt is an 84 yo F with PMH of NIDDM, HTN, Alzheimers, TIA (L sided) presenting from home with swelling of mouth and face and difficulty swallowing after waking up this am. Neuro Awake, alert-despite sedatives on board Will titrate sedation appropriately- propofol, fentanyl drips Cardio #HTN BP stable for now, will hold lisinopril Cont to monitor Resp # angioedema (Possibly Acquired) likely secondary to lisinopril use No dyspnea prior to presentation Intubated to protect airway with hoarseness and dysphagia Pt received FFP, tranexamic acid Will give benadryl, famotidine hydocort 50 Q8H C4, C1q, C1-Ag, CRP, ESR ENT consult Renal Renal function stable Cont to monitor Endo #NIDDM Will hold metformin ISS Q6H BGM Q6H GI #Dysphagia in setting of angioedema No other GI symptoms NPO ID Elevated WBC, could be reactive Flu swab PPX GI- famotidine Lovenox 40mg sq FEN No standing fluids Monitor lytes, replete as needed NPO Dispo: We will continue to follow the patient. Thank you for this consultative opportunity. Visit type - Emergency Visit Emergency Visit: Yes ED Registration Date: 10/20/19 Care time: The patient presented to the Emergency Department on the above date and was hospitalized for further evaluation of their emergent condition. - New Patient This patient is new to me today: Yes Date on this admission: 10/20/19 - Critical Care Critical Care patient: Yes Total Critical Care Time (in minutes): 37 Critical Care Statement: The care of this patient involved high complexity decision making to prevent further life threatening deterioration of the patient 's condition and/or to evaluate & treat vital organ system(s) failure or risk of failure. ATTENDING PHYSICIAN STATEMENT I saw and evaluated the patient. I reviewed the resident's note and discussed the case with the resident. I agree with the resident's findings and plan as documented. SUBJECTIVE: OBJECTIVE: ASSESSMENT AND PLAN:
--- NOTE | 2019-10-20 17:09 | HP ---
CHIEF COMPLAINT: mouth swelling PCP: HISTORY OF PRESENT ILLNESS: History obtained from chart review' patient intubated, sedated upon my encounter. Patient is an 84 year old female with history of hypertension, diabetes mellitus presents with complaint of oral swelling. Reportedly symptoms began this morning approx 9AM, progressing to difficulty swallowing, with raspy voice prompting her presentation to Emergency Department. Patient has been on JOSÉ LUIS inhibitor (Lisinopril) for over 20 years; reported that she had similar, less intense episode of narcisa-oral swelling earleir last month that lasted three days , and resolved without intervention. In ED she was treated with Decadron, Tranexamic acid. Upon my encounter, patient is intubated, sedated. ER course was notable for: (1) Intubatation, Decadron, FFP, Tranexamic acid. Recent Travel: denies PAST MEDICAL HISTORY: hypertension PAST SURGICAL HISTORY: Social History: Smoking: unable to obtain Alcohol: unable to obtain Drugs: unable to obtain Allergies No Known Allergies Allergy (Verified 09/01/19 12:33) HOME MEDICATIONS: Home Medications Medication Instructions Recorded Amlodipine Besylate 5 mg PO DAILY 09/01/19 Aspirin [ASA -] 81 mg PO DAILY 09/01/19 Donepezil HCl 10 mg PO DAILY 09/01/19 Lisinopril/Hydrochlorothiazide 1 each PO DAILY 09/01/19 [Lisinopril-Hctz 20-12.5 mg Tab] Loratadine [Allergy Relief] 10 mg PO DAILY 09/01/19 Metformin HCl [Glucophage] 500 mg PO TID 09/01/19 Multivitamin [One-Daily 1 each PO DAILY 09/01/19 Multi-Vitamin] Simvastatin 20 mg PO HS 09/01/19 Tramadol HCl 50 mg PO TID 09/01/19 REVIEW OF SYSTEMS Unable to obtain due to patient clinical condition. PHYSICAL EXAMINATION Vital Signs - 24 hr 10/20/19 10/20/19 10/20/19 12:54 14:43 15:11 Temperature 98.3 F 98.2 F Pulse Rate 77 Pulse Rate [ 73 Left Radial] Respiratory 16 16 Rate Blood Pressure 150/55 L Blood Pressure 140/67 [Left Arm] O2 Sat by Pulse 100 100 100 Oximetry (%) 10/20/19 16:11 Temperature Pulse Rate Pulse Rate [ Left Radial] Respiratory 14 Rate Blood Pressure Blood Pressure [Left Arm] O2 Sat by Pulse Oximetry (%) GENERAL: Intubated, minimally sedated HEAD: Normal with no signs of trauma. HEENT: NC/AT. PERRL, sclera anicteric, conjunctiva clear. Intubated. Upper lip swollen more than lower lip. NECK: Supple without lymphadenopathy, or JVD. Negative stridor., LUNGS: Mechanical breath sound with faint wheezing bilaterally. HEART: Regular rate and rhythm, normal S1 and S2 without murmur, rub or gallop. ABDOMEN: Soft, nontender, not distended. Normoactive bowel sounds X4 quadrants. EXTREMITIES: 2+ radial, dorsalis pedis pulses bilaterally, warm, well-perfused. No peripheral edema bilateral lower extremities. SKIN: Warm, dry. Laboratory Results - last 24 hr 10/20/19 10/20/19 10/20/19 13:45 13:45 13:45 WBC 10.7 H RBC 4.21 Hgb 10.9 Hct 34.5 MCV 82.0 MCH 25.9 MCHC 31.6 L RDW 14.5 Plt Count 475 H D MPV 7.9 D Absolute Neuts (auto) 8.3 H Neutrophils % 77.6 D Lymphocytes % 11.7 D Monocytes % 7.8 Eosinophils % 1.8 Basophils % 1.1 Nucleated RBC % 0 Sodium 137 Potassium 4.9 Chloride 101 Carbon Dioxide 29 Anion Gap 7 L BUN 22.5 H Creatinine 1.0 Est GFR (CKD-EPI)AfAm 60.76 Est GFR (CKD-EPI)NonAf 52.42 Random Glucose 119 H Calcium 9.5 Total Bilirubin 0.2 AST 18 ALT 21 Alkaline Phosphatase 79 Total Protein 7.5 Albumin 3.4 Blood Type A POSITIVE Antibody Screen Negative ASSESSMENT/PLAN: Patient is an 84 year old female with history of hypertension, diabetes mellitus , admitted for angioedema Angioedema -Patient intubated in ED for airway protection. TV 350-FiO2 30% -RR 14 -PEEP 5 -Received Decadrom 10mg IV in ED -Continue steroid Hydrocortisone 50mg IV Q8 hours -Benadryl 25mg IV daily -Famotidine 20mg IV BID -ENT evaluation (Dr Slade) -Telemetry monitoring while in ICU Hypertension -Hold Lisinopril -Monitor vital signs closely. Diabetes mellitus -Insulin sliding scale Q6H -Fingerstick blood glucose Q6H -HbA1c FEN -IV normal saline -Follow BMP -NPO Prophylaxis -Lovenox 40mg subq daily -Famotidine 20mg IV BID Disposition -Admit to ICU Visit type - Emergency Visit Emergency Visit: Yes ED Registration Date: 10/20/19 Care time: The patient presented to the Emergency Department on the above date and was hospitalized for further evaluation of their emergent condition. - New Patient This patient is new to me today: Yes Date on this admission: 10/20/19 - Critical Care Critical Care patient: Yes Total Critical Care Time (in minutes): 36 Critical Care Statement: The care of this patient involved high complexity decision making to prevent further life threatening deterioration of the patient 's condition and/or to evaluate & treat vital organ system(s) failure or risk of failure. ATTENDING PHYSICIAN STATEMENT I saw and evaluated the patient. I reviewed the resident's note and discussed the case with the resident. I agree with the resident's findings and plan as documented. SUBJECTIVE: OBJECTIVE: ASSESSMENT AND PLAN:
[2019-10-20] MEDS ORDERED: PROPOFOL 200 MG/20 ML VIAL IVPUSH ONE (17:11)
[2019-10-20] MEDS ORDERED: PROPOFOL 1,000,000 MCG/100 ML VIAL IVPB SCH ×2 (18:00)
[2019-10-20] MEDS: HYDROCORTISONE SOD SUCCINATE 100 MG/2 ML VIAL IVPUSH SCH (18:11)
[2019-10-20] MEDS ORDERED: INSULIN SLIDING SCALE (NOVOLOG) 1 VIAL SQ SCH (18:15)
--- NOTE | 2019-10-20 18:20 | PN ---
Teaching Attending Note Name of Resident: Garo Ivan ATTENDING PHYSICIAN STATEMENT I saw and evaluated the patient. I reviewed the resident's note and discussed the case with the resident. I agree with the resident's findings and plan as documented. SUBJECTIVE: Intubated, Sedated, unable to provide history. OBJECTIVE: Afebrile, Hemodynamically Stable. Opening eyes, moving extremities despite Propofol sedation. Last Vital Signs Temp Pulse Resp BP Pulse Ox 97.7 F 85 14 144/82 100 10/20/19 18:15 10/20/19 18:15 10/20/19 18:15 10/20/19 18:15 10/20/19 18:15 HEENT - Atraumatic, swollen upper lip, ETT in-situ Heart - S1, S2, RRR Lungs - good air entry bilaterally. No wheeze or stridor. Abdomen - Soft, non-tender. Bowel Sounds normal. Extremities - no edema, no calf tenderness. Neuro - Moving all extremities, opening eyes on sedation. JOELLEN. Laboratory Results - last 24 hr 10/20/19 10/20/19 10/20/19 13:45 13:45 13:45 WBC 10.7 H RBC 4.21 Hgb 10.9 Hct 34.5 MCV 82.0 MCH 25.9 MCHC 31.6 L RDW 14.5 Plt Count 475 H D MPV 7.9 D Absolute Neuts (auto) 8.3 H Neutrophils % 77.6 D Lymphocytes % 11.7 D Monocytes % 7.8 Eosinophils % 1.8 Basophils % 1.1 Nucleated RBC % 0 Sodium 137 Potassium 4.9 Chloride 101 Carbon Dioxide 29 Anion Gap 7 L BUN 22.5 H Creatinine 1.0 Est GFR (CKD-EPI)AfAm 60.76 Est GFR (CKD-EPI)NonAf 52.42 POC Glucometer Random Glucose 119 H Calcium 9.5 Total Bilirubin 0.2 AST 18 ALT 21 Alkaline Phosphatase 79 Total Protein 7.5 Albumin 3.4 Blood Type A POSITIVE Antibody Screen Negative 10/20/19 18:31 WBC RBC Hgb Hct MCV MCH MCHC RDW Plt Count MPV Absolute Neuts (auto) Neutrophils % Lymphocytes % Monocytes % Eosinophils % Basophils % Nucleated RBC % Sodium Potassium Chloride Carbon Dioxide Anion Gap BUN Creatinine Est GFR (CKD-EPI)AfAm Est GFR (CKD-EPI)NonAf POC Glucometer 215 Random Glucose Calcium Total Bilirubin AST ALT Alkaline Phosphatase Total Protein Albumin Blood Type Antibody Screen Current Medications Generic Name Dose Route Start Last Admin Trade Name Charisma PRN Reason Stop Dose Admin Chlorhexidine Gluconate 1 applic 10/20/19 22:00 Hibiclens For Decolonization - TP HS [facility] Diphenhydramine HCl 25 mg 10/20/19 17:15 10/20/19 18:41 Benadryl Injection - IVPUSH 25 mg DAILY [facility] Administration Enoxaparin Sodium 40 mg 10/21/19 10:00 Lovenox - SQ DAILY [facility] Hydrocortisone Sodium Succinate 50 mg 10/20/19 17:45 10/20/19 18:11 Solu-Cortef - IVPUSH 50 mg Q8H [facility] Administration Fentanyl 500 mcg/ Dextrose 100 mls @ 10 mls/hr 10/20/19 16:15 10/20/19 18:04 IVPB 100 mcg/hr TITR [facility] 20 mls/hr Titration 50 MCG/HR Famotidine/Sodium Chloride 20 mg in 50 mls @ 100 mls/hr 10/20/19 22:00 Pepcid 20 Mg Premixed Ivpb - IVPB BID [facility] Propofol 1,000,000 mcg in 100 mls @ 1.565 mls/hr 10/20/19 18:00 10/20/19 18: 03 Diprivan - IVPB 30 mcg/kg/min TITR [facility] 9.389 mls/hr Titration Protocol 5 MCG/KG/MIN Insulin Aspart 1 vial 10/20/19 19:57 Novolog Vial Sliding Scale - SQ ACHS [facility] Protocol Mupirocin 1 applic 10/20/19 22:00 Bactroban Ointment (For Decolonization) - NS 10/25/19 21:59 BID [facility] Home Medications Medication Instructions Recorded Amlodipine Besylate 5 mg PO DAILY 09/01/19 Aspirin [ASA -] 81 mg PO DAILY 09/01/19 Donepezil HCl 10 mg PO DAILY 09/01/19 Lisinopril/Hydrochlorothiazide 1 each PO DAILY 09/01/19 [Lisinopril-Hctz 20-12.5 mg Tab] Loratadine [Allergy Relief] 10 mg PO DAILY 09/01/19 Metformin HCl [Glucophage] 500 mg PO TID 09/01/19 Multivitamin [One-Daily 1 each PO DAILY 09/01/19 Multi-Vitamin] Simvastatin 20 mg PO HS 09/01/19 Tramadol HCl 50 mg PO TID 09/01/19 ASSESSMENT AND PLAN: 84 year old female with history of HTN, DM 2, presents with complaint of lip/ oral swelling, dysphonia, difficulty swallowing, progressed to drooling and inability to swallow secretions necessitating Intubation. 1. Severe Angioedema secondary to likely JOSÉ LUIS-I Required Intubation for Airway protection due to impending compromise. Received Decadron, Tranexamic Acid. FFP running. For H2 justus, Hydrocortizone, Benadryl. ENT consult placed. Further airway management as per ICU team. 2. HTN - On Lisinopril/HCTZ, Norvasc normally. JOSÉ LUIS-I held. Will also hold HCTZ in favor of gentle hydration. 3. DM 2 - Metformin held. Maintain on Insulin sliding scale if necessary. 4. Dementia - normally on Donepezil. 5. HLD - On Statin normally. DVT Px - Lovenox SQ GI Px - Famotidine IV
[2019-10-20] MEDS: INSULIN SLIDING SCALE (NOVOLOG) 1 VIAL SQ SCH (21:48)
[2019-10-20] MEDS: MUPIROCIN 2% TOPICAL OINTMENT FOR DECOLONIZATION NS SCH (21:48)
[2019-10-20] MEDS: FAMOTIDINE 20 MG/50 ML IVPB 20 MG/50 ML MG IVPB SCH (21:48)
[2019-10-20] MEDS: CHLORHEXIDINE GLUCONATE 4% CLEANSER FOR DECOLONIZATION TP SCH (21:49)
[2019-10-21] MEDS: HYDROCORTISONE SOD SUCCINATE 100 MG/2 ML VIAL IVPUSH SCH ×2 (01:45→09:59)
[2019-10-21] MEDS ORDERED: fentaNYL CITRATE 250 MCG/5 ML VIAL ONE (06:01)
[2019-10-21] MEDS: INSULIN SLIDING SCALE (NOVOLOG) 1 VIAL SQ SCH ×4 (06:10→22:25)
[2019-10-21 06:52] LABS: BASO % 0.3 % (0-2.0); HEMATOCRIT 29.3 % (32.4-45.2); HEMOGLOBIN 9.4 GM/dL (10.7-15.3); MCH 26.1 pg (25.7-33.7); MCHC 32.1 g/dl (32.0-36.0); MEAN CELL VOLUME 81.3 fl (80-96); MEAN PLT VOLUME 8.7 fl (7.5-11.1); MONO % 3.3 % (3.8-10.2); NEUT % 90.4 % (42.8-82.8); PLATELET COUNT 379 K/MM3 (134-434); RDW 13.9 % (11.6-15.6); WHITE BLOOD COUNT 10.8 K/mm3 (4.0-10.0)
[2019-10-21 07:27] LABS: BILIRUBIN,TOTAL 0.3 mg/dL (0.2-1); BLOOD UREA NITROGEN 28.5 mg/dL (7-18); CREATININE 1.1 mg/dL (0.55-1.3); PHOSPHOROUS 5.9 mg/dL (2.5-4.9); POTASSIUM 4.5 mmol/L (3.5-5.1); TOT PROT 6.6 g/dl (6.4-8.2)
--- NOTE | 2019-10-21 08:23 | CONSULT ---
Consult - text type - Consultation Consultation Note: ENT consult 84 yo woman with suspected angioedema from lisinopril, requiring intubation due to clinical worsening before flexible laryngscopy could be performed. No immediate response in the ER to steroids, FFP, tranexemic acid, antihistamines. There was a second-hand report that the intubating provider did not see any laryngeal edema. Imp: suspected angioedema due to lisinopril Recommend: No further treatment with ACEIs. Unfortunately, there are no C1 esterase or kallikrein inhibitors available in the hospital, according to the pharmacist. The treatment, therefore, is to await resolution of the visible signs of angioedema. Once the edema subsides, all other factors being the same , she should be extubatable. Reconsult if needed.
--- NOTE | 2019-10-21 09:30 | EKG ---
Test Reason : Blood Pressure : / mmHG Vent. Rate : 079 BPM Atrial Rate : 079 BPM P-R Int : 110 ms QRS Dur : 064 ms QT Int : 382 ms P-R-T Axes : 039 016 055 degrees QTc Int : 438 ms SINUS RHYTHM WITH SHORT ND OTHERWISE NORMAL ECG WHEN COMPARED WITH ECG OF 01-SEP-2019 13:22, NO SIGNIFICANT CHANGE WAS FOUND Confirmed by Eric Mendez MD ([id number]) on 10/21/2019 9:29:54 AM Referred By: Confirmed By:Eric Mendez MD
[2019-10-21] MEDS: ENOXAPARIN NA (PORCINE) 40 MG/0.4 ML DISP.SYRIN SQ SCH (10:25)
[2019-10-21] MEDS: FAMOTIDINE 20 MG/50 ML IVPB 20 MG/50 ML MG IVPB SCH ×2 (10:25→21:41)
[2019-10-21] MEDS: MUPIROCIN 2% TOPICAL OINTMENT FOR DECOLONIZATION NS SCH ×2 (13:01→21:42)
--- NOTE | 2019-10-21 13:03 | PN ---
Teaching Attending Note Name of Resident: Lanette Vazquez ATTENDING PHYSICIAN STATEMENT I saw and evaluated the patient. I reviewed the resident's note and discussed the case with the resident. I agree with the resident's findings and plan as documented. SUBJECTIVE: Pt seen and examined in the ICU. Intubated, sedated, positive cuff leak on exam. Placed on CPAP/PS, following commands off sedation and subsequently extubated during rounds. OBJECTIVE: Vital Signs Period Temp Pulse Resp BP Sys/Mijares Pulse Ox Last 24 Hr 97.4 F-98.4 F 55-86 14-19 96-145/50-82 99-100 Intake & Output 10/18/19 10/19/19 10/20/19 10/21/19 23:59 23:59 23:59 23:59 Intake Total 300 350 Balance 300 350 Weight 52.163 kg Gen: extubated Heart: RRR Lung: decreased breath sounds at the bases Abd: soft, nontender Ext: no edema CBC, BMP 10/21/19 06:08 10/21/19 06:08 Active Medications Chlorhexidine Gluconate (Hibiclens For Decolonization -) 1 applic TP HS [facility] Last Admin: 10/20/19 21:49 Dose: 1 applic Dexamethasone Sodium Phosphate (Decadron Injection -) 10 mg IVPUSH Q8H-IV [facility] Diphenhydramine HCl (Benadryl Injection -) 25 mg IVPUSH DAILY [facility] Last Admin: 10/21/19 10:26 Dose: 25 mg Enoxaparin Sodium (Lovenox -) 40 mg SQ DAILY [facility] Last Admin: 10/21/19 10:25 Dose: 40 mg Fentanyl 500 mcg/ Dextrose 100 mls @ 10 mls/hr IVPB TITR [facility]E Last Titration: 10/20/19 18:04 Dose: 100 mcg/hr, 20 mls/hr Famotidine/Sodium Chloride (Pepcid 20 Mg Premixed Ivpb -) 20 mg in 50 mls @ 100 mls/hr IVPB BID [facility] Last Admin: 10/21/19 10:25 Dose: 100 mls/hr Propofol (Diprivan -) 1,000,000 mcg in 100 mls @ 1.565 mls/hr IVPB TITR [facility]; Protocol Last Titration: 10/21/19 07:00 Dose: 50 mcg/kg/min, 15.649 mls/hr Insulin Aspart (Novolog Vial Sliding Scale -) 1 vial SQ ACHS [facility]; Protocol Last Admin: 10/21/19 06:10 Dose: 4 scoop Mupirocin (Bactroban Ointment (For Decolonization) -) 1 applic NS BID [facility] Stop: 10/25/19 21:59 Last Admin: 10/20/19 21:48 Dose: 1 applic ASSESSMENT AND PLAN: Acute Respiratory Failure Angioedema likely to JOSÉ LUIS-I HTN DM Hyperlipidemia Dementia Anemia - pt extubated - continue decadron - continue antihistamines - O2 to keep Spo2 >90% - aspiration precautions - DVT prophylaxis - continue ICU monitoring critical care time spent in reviewing chart, evaluating patient and formulating plan 35 min
--- NOTE | 2019-10-21 14:52 | PN ---
Physical Exam: SUBJECTIVE: Patient seen and examined. Extubated today, saturating well on venti mask. OBJECTIVE: Vital Signs Period Temp Pulse Resp BP Sys/Mijares Pulse Ox Last 24 Hr 97.4 F-98.4 F 55-86 14-19 96-145/50-82 99-100 GENERAL: Extubated, alert HEENT: + perioral edema. PERRLA LUNGS: CTABL HEART: Regular rate and rhythm, S1, S2 without murmur, rub or gallop. ABDOMEN: Soft, nontender, nondistended, normoactive bowel sounds EXTREMITIES: 2+ pulses, warm, well-perfused, no edema. Laboratory Results - last 24 hr 10/20/19 10/20/19 10/20/19 13:45 13:45 18:31 WBC RBC Hgb Hct MCV MCH MCHC RDW Plt Count MPV Absolute Neuts (auto) Neutrophils % Lymphocytes % Monocytes % Eosinophils % Basophils % Nucleated RBC % ESR Sodium 137 Potassium 4.9 Chloride 101 Carbon Dioxide 29 Anion Gap 7 L BUN 22.5 H Creatinine 1.0 Est GFR (CKD-EPI)AfAm 60.76 Est GFR (CKD-EPI)NonAf 52.42 POC Glucometer 215 Random Glucose 119 H Calcium 9.5 Phosphorus Magnesium Total Bilirubin 0.2 AST 18 ALT 21 Alkaline Phosphatase 79 C-Reactive Protein Total Protein 7.5 Albumin 3.4 Blood Type A POSITIVE Antibody Screen Negative 10/20/19 10/21/19 10/21/19 21:41 06:03 06:08 WBC RBC Hgb Hct MCV MCH MCHC RDW Plt Count MPV Absolute Neuts (auto) Neutrophils % Lymphocytes % Monocytes % Eosinophils % Basophils % Nucleated RBC % ESR 36 H Sodium Potassium Chloride Carbon Dioxide Anion Gap BUN Creatinine Est GFR (CKD-EPI)AfAm Est GFR (CKD-EPI)NonAf POC Glucometer 134 210 Random Glucose Calcium Phosphorus Magnesium Total Bilirubin AST ALT Alkaline Phosphatase C-Reactive Protein Total Protein Albumin Blood Type Antibody Screen 10/21/19 10/21/19 10/21/19 06:08 06:08 12:52 WBC 10.8 H RBC 3.60 Hgb 9.4 L Hct 29.3 L D MCV 81.3 MCH 26.1 MCHC 32.1 RDW 13.9 Plt Count 379 D MPV 8.7 D Absolute Neuts (auto) 9.7 H Neutrophils % 90.4 H Lymphocytes % 6.0 L D Monocytes % 3.3 L Eosinophils % 0.0 D Basophils % 0.3 Nucleated RBC % 0 ESR Sodium 137 Potassium 4.5 Chloride 101 Carbon Dioxide 26 Anion Gap 10 BUN 28.5 H Creatinine 1.1 Est GFR (CKD-EPI)AfAm 54.15 Est GFR (CKD-EPI)NonAf 46.72 POC Glucometer 147 Random Glucose 209 H Calcium 9.0 Phosphorus 5.9 H Magnesium 2.0 Total Bilirubin 0.3 AST 15 ALT 16 Alkaline Phosphatase 70 C-Reactive Protein 2.0 H Total Protein 6.6 Albumin 3.0 L Blood Type Antibody Screen Active Medications Generic Name Dose Route Start Last Admin Trade Name Freq PRN Reason Stop Dose Admin Chlorhexidine Gluconate 1 applic 10/20/19 22:00 10/20/19 21:49 Hibiclens For Decolonization - TP 1 applic HS [facility] Administration Dexamethasone Sodium Phosphate 10 mg 10/21/19 18:00 Decadron Injection - IVPUSH Q8H-IV [facility] Diphenhydramine HCl 25 mg 10/20/19 17:15 10/21/19 10:26 Benadryl Injection - IVPUSH 25 mg DAILY [facility] Administration Enoxaparin Sodium 40 mg 10/21/19 10:00 10/21/19 10:25 Lovenox - SQ 40 mg DAILY [facility] Administration Fentanyl 500 mcg/ Dextrose 100 mls @ 10 mls/hr 10/20/19 16:15 10/21/19 11:45 IVPB 0 mcg/hr TITR GABE 0 mls/hr Titration 50 MCG/HR Famotidine/Sodium Chloride 20 mg in 50 mls @ 100 mls/hr 10/20/19 22:00 10:25 Pepcid 20 Mg Premixed Ivpb - IVPB 100 mls/hr BID [facility] Administration Propofol 1,000,000 mcg in 100 mls @ 1.565 mls/hr 10/20/19 18:00 10/21/19 11: 45 Diprivan - IVPB 0 mcg/kg/min TITR GABE 0 mls/hr Titration Protocol 5 MCG/KG/MIN Insulin Aspart 1 vial 10/20/19 19:57 10/21/19 13:01 Novolog Vial Sliding Scale - SQ Not Given ACHS [facility] Protocol Mupirocin 1 applic 10/20/19 22:00 10/21/19 13:01 Bactroban Ointment (For Decolonization) - NS 10/25/19 21:59 1 applic BID [facility] Administration ASSESSMENT/PLAN: 84 y.o. F PMH HTN, type 2 DM who presented for angioedema #CV -hx htn -d/c'd home anti-HTN as ACEi likely contributed to current presentation #Pulm -Extubated today after + cuff leak test -C/w decadron 10mg IV q8h -continue benadryl -monitor for airway edema, maintain o2sat >90% -f/u C1 esterase inhib concentration, C4 -aspiration precautions -ENT consulted: no acute intervention @ this time, monitor edema #Heme/Onc -normocytic anemia -monitor h&h #PPX -lovenox 40U aq daily -pepcid 20mg IV BID #FEN -no standing fluids -monitor bmp replete lytes prn -pending S&S eval Visit type - Emergency Visit Emergency Visit: Yes ED Registration Date: 10/20/19 Care time: The patient presented to the Emergency Department on the above date and was hospitalized for further evaluation of their emergent condition. - New Patient This patient is new to me today: Yes Date on this admission: 10/21/19 - Critical Care Critical Care patient: Yes Total Critical Care Time (in minutes): 36 Critical Care Statement: The care of this patient involved high complexity decision making to prevent further life threatening deterioration of the patient 's condition and/or to evaluate & treat vital organ system(s) failure or risk of failure. ATTENDING PHYSICIAN STATEMENT I saw and evaluated the patient. I reviewed the resident's note and discussed the case with the resident. I agree with the resident's findings and plan as documented. SUBJECTIVE: OBJECTIVE: ASSESSMENT AND PLAN:
--- NOTE | 2019-10-21 14:58 | PN ---
Physical Exam: SUBJECTIVE: Patient seen and examined at the bedside. Patient was intubated and sedated on examination. Patient was subsequently extubated by ICU team in the afternoon. OBJECTIVE: Vital Signs Period Temp Pulse Resp BP Sys/Mijares Pulse Ox Last 24 Hr 97.4 F-99.7 F 55-93 14-20 96-145/50-82 99-100 GENERAL: The patient is intubated and sedated. HEAD: Normal with no signs of trauma. EYES: PERRL, 3mm pupils. ENT: Oropharynx clear without exudates, mildly enlarged tongue, ET tube present. NECK: Enlarged neck. Breath sound not easily heard. LUNGS: Mild coarse breath sounds auscultated, no wheezes, no accessory muscle use. HEART: Regular rate and rhythm, S1, S2 without murmur, rub. ABDOMEN: Soft, mildly tender in the suprapubic region, nondistended, normoactive bowel sounds, no guarding, no rebound, no masses. EXTREMITIES: 2+ pulses, warm, well-perfused, no edema. NEUROLOGICAL: Sedated, withdraws to pain. Gag reflex, dolls eye, pupils intact. SKIN: Warm, dry, normal turgor, no rashes or lesions noted. Laboratory Results - last 24 hr 10/20/19 10/20/19 10/20/19 13:45 13:45 18:31 WBC RBC Hgb Hct MCV MCH MCHC RDW Plt Count MPV Absolute Neuts (auto) Neutrophils % Lymphocytes % Monocytes % Eosinophils % Basophils % Nucleated RBC % ESR Sodium 137 Potassium 4.9 Chloride 101 Carbon Dioxide 29 Anion Gap 7 L BUN 22.5 H Creatinine 1.0 Est GFR (CKD-EPI)AfAm 60.76 Est GFR (CKD-EPI)NonAf 52.42 POC Glucometer 215 Random Glucose 119 H Calcium 9.5 Phosphorus Magnesium Total Bilirubin 0.2 AST 18 ALT 21 Alkaline Phosphatase 79 C-Reactive Protein Total Protein 7.5 Albumin 3.4 Blood Type A POSITIVE Antibody Screen Negative 10/20/19 10/21/19 10/21/19 21:41 06:03 06:08 WBC RBC Hgb Hct MCV MCH MCHC RDW Plt Count MPV Absolute Neuts (auto) Neutrophils % Lymphocytes % Monocytes % Eosinophils % Basophils % Nucleated RBC % ESR 36 H Sodium Potassium Chloride Carbon Dioxide Anion Gap BUN Creatinine Est GFR (CKD-EPI)AfAm Est GFR (CKD-EPI)NonAf POC Glucometer 134 210 Random Glucose Calcium Phosphorus Magnesium Total Bilirubin AST ALT Alkaline Phosphatase C-Reactive Protein Total Protein Albumin Blood Type Antibody Screen 10/21/19 10/21/19 10/21/19 06:08 06:08 12:52 WBC 10.8 H RBC 3.60 Hgb 9.4 L Hct 29.3 L D MCV 81.3 MCH 26.1 MCHC 32.1 RDW 13.9 Plt Count 379 D MPV 8.7 D Absolute Neuts (auto) 9.7 H Neutrophils % 90.4 H Lymphocytes % 6.0 L D Monocytes % 3.3 L Eosinophils % 0.0 D Basophils % 0.3 Nucleated RBC % 0 ESR Sodium 137 Potassium 4.5 Chloride 101 Carbon Dioxide 26 Anion Gap 10 BUN 28.5 H Creatinine 1.1 Est GFR (CKD-EPI)AfAm 54.15 Est GFR (CKD-EPI)NonAf 46.72 POC Glucometer 147 Random Glucose 209 H Calcium 9.0 Phosphorus 5.9 H Magnesium 2.0 Total Bilirubin 0.3 AST 15 ALT 16 Alkaline Phosphatase 70 C-Reactive Protein 2.0 H Total Protein 6.6 Albumin 3.0 L Blood Type Antibody Screen Active Medications Generic Name Dose Route Start Last Admin Trade Name Freq PRN Reason Stop Dose Admin Chlorhexidine Gluconate 1 applic 10/20/19 22:00 10/20/19 21:49 Hibiclens For Decolonization - TP 1 applic HS [facility] Administration Dexamethasone Sodium Phosphate 10 mg 10/21/19 18:00 Decadron Injection - IVPUSH Q8H-IV [facility] Diphenhydramine HCl 25 mg 10/20/19 17:15 10/21/19 10:26 Benadryl Injection - IVPUSH 25 mg DAILY [facility] Administration Enoxaparin Sodium 40 mg 10/21/19 10:00 10/21/19 10:25 Lovenox - SQ 40 mg DAILY [facility] Administration Fentanyl 500 mcg/ Dextrose 100 mls @ 10 mls/hr 10/20/19 16:15 10/21/19 11:45 IVPB 0 mcg/hr TITR GABE 0 mls/hr Titration 50 MCG/HR Famotidine/Sodium Chloride 20 mg in 50 mls @ 100 mls/hr 10/20/19 22:00 10:25 Pepcid 20 Mg Premixed Ivpb - IVPB 100 mls/hr BID [facility] Administration Propofol 1,000,000 mcg in 100 mls @ 1.565 mls/hr 10/20/19 18:00 10/21/19 11: 45 Diprivan - IVPB 0 mcg/kg/min TITR [facility] 0 mls/hr Titration Protocol 5 MCG/KG/MIN Insulin Aspart 1 vial 10/20/19 19:57 10/21/19 13:01 Novolog Vial Sliding Scale - SQ Not Given ACHS [facility] Protocol Mupirocin 1 applic 10/20/19 22:00 10/21/19 13:01 Bactroban Ointment (For Decolonization) - NS 10/25/19 21:59 1 applic BID [facility] Administration ASSESSMENT/PLAN: Marie Gloria is an 84 year old female with a past medical history of hypertension, diabetes mellitus, TIA admitted for angioedema. Angioedema - patient extubated today - Decadron 10mg q8h - Benadryl 25mg IV daily - Famotidine 20mg IV BID - ENT evaluation requested - ICU monitoring on telemetry - received FFP and transexamic acid in the ED - discontinue JOSÉ LUIS inhibitor and listed as allergy - [id number], C4 pending Hypertension - Hold Lisinopril - will need to restart BP med if becomes hypertensive - JOSÉ LUIS inhibitor now an allergy Diabetes mellitus - Insulin sliding scale Q6H - Fingerstick blood glucose Q6H - HbA1c FEN - no standing fluids, will need to restart if patient remains NPO - continue to monitor electrolytes and replete as necessary - NPO, cautiously restart diet Prophylaxis - Lovenox 40mg subq daily - Famotidine 20mg IV BID Disposition - continue to monitor in ICU Visit type - Emergency Visit Emergency Visit: Yes ED Registration Date: 10/20/19 Care time: The patient presented to the Emergency Department on the above date and was hospitalized for further evaluation of their emergent condition. - New Patient This patient is new to me today: Yes Date on this admission: 10/21/19 - Critical Care Critical Care patient: Yes Total Critical Care Time (in minutes): 36 Critical Care Statement: The care of this patient involved high complexity decision making to prevent further life threatening deterioration of the patient 's condition and/or to evaluate & treat vital organ system(s) failure or risk of failure.
--- NOTE | 2019-10-21 16:41 | PN ---
Teaching Attending Note Name of Resident: Vinnie Roberts ATTENDING PHYSICIAN STATEMENT I saw and evaluated the patient. I reviewed the resident's note and discussed the case with the resident. I agree with the resident's findings and plan as documented. SUBJECTIVE: sen at 9 am . was intubated OBJECTIVE: Intubated , sedated, round equal pupils, not reactive . upper lip with edema , neck with edema CV: RRR, no mRG Lungs: CTAB ext : No edema or ertyhema. abd: soft, ND, discomfort with palpating suprapubic area, bladder percussed below the umbilicus . ASSESSMENT AND PLAN: 84 y/o lady with h/o dementia, HTN, and DM who presented with edema in face and difficulty swallowing, and was found to have angioedema nad resp failure 1 - Acute hypoxic resp failure 2- Angioedema due to ACEI. 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 switch to pO when able to take PO - monitor resp status closely - report ACEI as allergies - when BP starts to ride, can choose another agent,like norvasc or BB - SSI for DM for now - lovenox for DVT px
[2019-10-21] MEDS: DEXAMETHASONE SOD PHOSPHATE 10 MG/1 ML VIAL IVPUSH SCH (19:10)
[2019-10-21] MEDS: CHLORHEXIDINE GLUCONATE 4% CLEANSER FOR DECOLONIZATION TP SCH (21:42)
[2019-10-22] MEDS: DEXAMETHASONE SOD PHOSPHATE 10 MG/1 ML VIAL IVPUSH SCH ×2 (02:23→09:20)
[2019-10-22 07:00] LABS: BASO % 0.5 % (0-2.0); HEMATOCRIT 30.2 % (32.4-45.2); HEMOGLOBIN 9.7 GM/dL (10.7-15.3); LYMPH % 4.1 % (8-40); MEAN CELL VOLUME 81.2 fl (80-96); MEAN PLT VOLUME 8.6 fl (7.5-11.1); MONO % 2.3 % (3.8-10.2); NEUT % 93.1 % (42.8-82.8); PLATELET COUNT 449 K/MM3 (134-434); RBC 3.72 M/mm3 (3.60-5.2); RDW 14.1 % (11.6-15.6); WHITE BLOOD COUNT 14.8 K/mm3 (4.0-10.0)
[2019-10-22 07:43] LABS: BILIRUBIN,TOTAL 0.2 mg/dL (0.2-1); BLOOD UREA NITROGEN 33.1 mg/dL (7-18); CALCIUM 8.4 mg/dL (8.5-10.1); CREATININE 1.1 mg/dL (0.55-1.3); MAGNESIUM 2.1 mg/dL (1.8-2.4); PHOSPHOROUS 4.8 mg/dL (2.5-4.9); POTASSIUM 4.4 mmol/L (3.5-5.1); TOT PROT 6.6 g/dl (6.4-8.2)
[2019-10-22] MEDS: INSULIN SLIDING SCALE (NOVOLOG) 1 VIAL SQ SCH ×4 (07:47→21:32)
[2019-10-22] MEDS: FAMOTIDINE 20 MG/50 ML IVPB 20 MG/50 ML MG IVPB SCH (09:20)
[2019-10-22] MEDS: MUPIROCIN 2% TOPICAL OINTMENT FOR DECOLONIZATION NS SCH ×2 (09:20→21:24)
[2019-10-22] MEDS: ENOXAPARIN NA (PORCINE) 40 MG/0.4 ML DISP.SYRIN SQ SCH (09:20)
--- NOTE | 2019-10-22 09:28 | CONSULT ---
Admitting History and Physical - Primary Care Physician PCP: Roberth Pack - Admission History of Present Illness: 84 year old female with history of hypertension, diabetes mellitus, admitted 10/20 for dysphonia/dysphagia/angioedema requiring intubation in ED for airway protection Extubated 10/21 and soft diet/thin liquids ordered. Selected Entries 10/21/19 10/21/19 10/21/19 02:00 06:00 10:00 Temperature 97.4 F L 98.4 F 97.8 F 10/21/19 10/22/19 14:00 06:00 Temperature 99.7 F H 98.0 F Laboratory Tests 10/20/19 10/21/19 10/22/19 13:45 06:08 05:20 WBC 10.7 H 10.8 H 14.8 H History Source: Patient, Medical Record Limitations to Obtaining History: No Limitations, Language Barrier - Past Medical History Cardiovascular: Yes: HTN Endocrine: Yes: Diabetes Mellitus - Smoking History Smoking history: Never smoked Have you smoked in the past 12 months: No - Alcohol/Substance Use Hx Alcohol Use: No History - Admission Reason For Visit: ANGIOEDEMA - Diagnostics X-ray: Report Reviewed - General Mental Status: Alert and Oriented, Awake and Alert, Able to Follow Commands Attention: Intact Ability to Follow Directions: Excellent Head/Neck Control: WFL - Hearing Hearing: Functional Hearing: Normal Speech Evaluation - Communication Primary Language: [id number] Communication: Yes: Within Normal Limits Oral Expression Ability: Yes: Mild Impairment - Speech Production Intelligibility: Yes: Mildly Impaired - Speech Characteristics Voice Loudness: Mildly Soft/Quiet Voice Pitch: Yes: Mildly High, Pitch Breaks Voice Phonatory-based Quality: Yes: Dysphonia Nasal Resonance: Normal Articulation: Yes: Precise Rate of Speech: Intact - Language/Auditory Comprehension Follows: Yes: 2 Stage Simple Commands Observation: Able to respond to yes/no queries: Yes, Yes/No Confusion: No, Comprehends Conversational Speech: Yes - Language/Verbal Expression Able to Respond to Simple Queries: Yes: WNL Able to Communicate Wants and Needs: Yes: WNL Functional Communication Status: Yes: WNL - Memory/Perception extermination inspector Memory: Yes: WNL Short Term Memory: Yes: WNL - Swallow Evaluation/Bedside Assessment Current Nutritional Intake: Soft, Thin Liquids Oral Secretions: Yes: WFL Dentition: Yes: Adequate Facial Symmetry at Rest: Symmetrical Facial Symmetry on Retraction: Symmetrical Facial Movement: Controlled Against Resistance Opening: Normal Against Resistance Closing: Normal Pucker Lips: Normal Smile: Normal Lingual Movement: Normal, Symmetric Lingual Speed of Movement: Normal Lingual Movement Strgth Against Opposition: Normal Lingual Movement Characteristics: Normal Velopharyngeal Movement: Normal Laryngeal Elevation: WFL Laryngeal Movement: Able to Palpate Rate of Intake: WFL Bolus Size: WFL Labial Seal: WFL Chewing: WFL Oral Prep Time: WFL A-P Transit: WFL Pocketing: None Timing of Swallow: WFL Coughing/Throat Clear: No Change in Voice: No Recommendations - Speech Evaluation, Impression/Plan Impression: Admitted for Dysphonia/Dysphagia/Angioedema required intubation for a day. Alert, verbal, voice dysphonic. Pt denies Dysphagia with solids or liquids. No overt signs of difficulty. Persistent dysphonia with risk of aspiration/stasis. - Dysphagia Impressions/Plan Dysphagia Impressions: Risk of Aspiration *Silent aspiration: cannot be R/O at bedside Dysphagia Treatment Plan: Small Bites, Chin Tuck/Down, Safe Rate, 1/2 tsp. at a time Recommendations: Other (Monitor PO tolerance)
--- NOTE | 2019-10-22 09:42 | PN ---
Teaching Attending Note Name of Resident: Vinnie Roberts ATTENDING PHYSICIAN STATEMENT I saw and evaluated the patient. I reviewed the resident's note and discussed the case with the resident. I agree with the resident's findings and plan as documented. Seen and examined; please see resident note for further historical information. I personally verified all barnett historical information and exam findings. Personally interpreted all imaging and diagnostics and reviewed appropriate consults. I reviewed all labs and vital signs as per resident note and EMR as documented. I agree with the above assessment and plan unless supplemented by myself in the following. Seen and examined in the ICU, discussed with daughter and patient. The patient is stable, she states that she feels strong and is able to communicate indicate fine and has no residual tongue or lip swelling. She was extubated yesterday without any issues and has had no further respiratory compromise. Switch to oral prednisone this morning without any issues, completing a course of p.o. prednisone, Benadryl, and famotidine. Discussed with pulmonary and can discharge. Discussed with patient's daughter and given the fact that she will be taking Benadryl and is 82 they can monitor her overnight to make sure she does not have any owning and were counseled when to bring the back to the hospital. They have benefited maximally from hospitalization. There are no further issues. VS, labs, imaging reviewed NAD, AAO, resting comfortably in bed. RRR s1/2 no mgr Normal muscle tone, moves all 5 extremities with normal apparent strength Neck is supple, trachea midline, no saira LN Lungs CTAB with sym expansion NT ND +BS no saira organomegaly CN2-12 wnl; no FND NC AT EOMI PERRLA Normal mood, appropriate behavior, euthymic affect No skin breakdown or rashes noted 40 minutes were spent on the course of this discharge, discussed at length with resident team and indicated consultants including pulmonary medicine. Agree with resident discharge plan. Follow-up with primary care as outlined, follow-up with pulmonary medicine as outlined. No need for further ENT follow-up C1 esterase inhibitor assay not available at this hospital, follow-up outpatient.
[2019-10-22] MEDS ORDERED: FAMOTIDINE 20 MG TABLET PO ONE (09:45)
[2019-10-22] MEDS: diphenhydrAMINE HCL 25 MG CAPSULE (FP) PO SCH (10:03)
[2019-10-22] MEDS: predniSONE 20 MG TABLET (UD) PO SCH (10:03)
[2019-10-22 10:23] LABS: ANISOCYTOSIS 1+; MACROCYTOSIS 0; PLATELET ESTIMATE NORMAL
--- NOTE | 2019-10-22 12:03 | PN ---
Teaching Attending Note Name of Resident: Lanette Vazquez ATTENDING PHYSICIAN STATEMENT I saw and evaluated the patient. I reviewed the resident's note and discussed the case with the resident. I agree with the resident's findings and plan as documented. SUBJECTIVE: Pt seen and examined in the ICU. Voice still hoarse but improving. Denies shortness of breath or dysphagia. OBJECTIVE: Vital Signs Period Temp Pulse Resp BP Sys/Mijares Pulse Ox Last 24 Hr 97.7 F-99.7 F 69-96 15-27 111-152/51-95 97-97 Intake & Output 10/19/19 10/20/19 10/21/19 10/22/19 23:59 23:59 23:59 23:59 Intake Total 300 775 150 Balance 300 775 150 Weight 52.163 kg Gen: NAD at rest Neck: no stridor Heart: RRR Lung: decreased breath sounds at the bases Abd: soft, nontender Ext: no edema CBC, BMP 10/22/19 05:20 10/22/19 05:20 Active Medications Chlorhexidine Gluconate (Hibiclens For Decolonization -) 1 applic TP HS [facility] Last Admin: 10/21/19 21:42 Dose: 1 applic Diphenhydramine HCl (Benadryl -) 25 mg PO DAILY [facility] Last Admin: 10/22/19 10:03 Dose: Not Given Enoxaparin Sodium (Lovenox -) 40 mg SQ DAILY [facility] Last Admin: 10/22/19 09:20 Dose: 40 mg Insulin Aspart (Novolog Vial Sliding Scale -) 1 vial SQ ACHS [facility]; Protocol Last Admin: 10/22/19 11:29 Dose: 10 units Mupirocin (Bactroban Ointment (For Decolonization) -) 1 applic NS BID [facility] Stop: 10/25/19 21:59 Last Admin: 10/22/19 09:20 Dose: 1 applic Prednisone (Deltasone -) 60 mg PO DAILY [facility] Last Admin: 10/22/19 10:03 Dose: 60 mg ASSESSMENT AND PLAN: s/p Acute Respiratory Failure Angioedema likely to JOSÉ LUIS-I HTN DM Hyperlipidemia Dementia Anemia - pt extubated - short course of steroids - PO as tolerated - O2 to keep Spo2 >90% - DVT prophylaxis - can monitor on floor or d/c home
--- NOTE | 2019-10-22 13:10 | PN ---
Physical Exam: SUBJECTIVE: Patient seen and examined at the bedside. Patient stated that she was feeling well and was hungry and wanted coffee and something to eat. She denied respiratory distress, shortness of breath, stridor, cp, abd pain, n/v/c/d , dizziness, lightheadedness, skin changes, headaches, fever, chills, numbness, tingling. OBJECTIVE: Vital Signs Period Temp Pulse Resp BP Sys/Mijares Pulse Ox Last 24 Hr 97.7 F-99.7 F 69-96 15-27 111-152/51-95 97-97 GENERAL: The patient is awake, alert, and fully oriented, in no acute distress. Slovak speaking. HEAD: Normal with no signs of trauma. EYES: PERRL, extraocular movements intact, sclera anicteric, conjunctiva clear. ENT: Oropharynx clear without exudates, moist mucous membranes. Normal sized tongue. NECK: Trachea midline, swelling decreased. Voice normal. No auscultated stridor. Good tracheal breath sounds. LUNGS: Breath sounds equal, clear to auscultation bilaterally, no wheezes, no crackles, no accessory muscle use. HEART: Regular rate and rhythm, S1, S2 without murmur, rub. ABDOMEN: Soft, nontender, nondistended, normoactive bowel sounds, no guarding, no reboundno masses. EXTREMITIES: 2+ pulses, warm, well-perfused, no edema. NEUROLOGICAL: Cranial nerves II through XII grossly intact. 5/5 muscle strength bilaterally, upper and lower extremities. PSYCH: Normal mood, normal affect. SKIN: Warm, dry, normal turgor, no rashes or lesions noted. Laboratory Results - last 24 hr 10/20/19 10/21/19 10/21/19 20:00 17:30 22:12 WBC RBC Hgb Hct MCV MCH MCHC RDW Plt Count MPV Absolute Neuts (auto) Neutrophils % Neutrophils % (Manual) Band Neutrophils % Lymphocytes % Lymphocytes % (Manual) Monocytes % Monocytes % (Manual) Eosinophils % Eosinophils % (Manual) Basophils % Basophils % (Manual) Myelocytes % (Man) Promyelocytes % (Man) Blast Cells % (Manual) Nucleated RBC % Metamyelocytes Hypochromia Platelet Estimate Polychromasia Poikilocytosis Anisocytosis Microcytosis Macrocytosis Sodium Potassium Chloride Carbon Dioxide Anion Gap BUN Creatinine Est GFR (CKD-EPI)AfAm Est GFR (CKD-EPI)NonAf POC Glucometer 156 191 Random Glucose Calcium Phosphorus Magnesium Total Bilirubin AST ALT Alkaline Phosphatase Total Protein Albumin Complement C4 30 10/22/19 10/22/19 10/22/19 05:20 05:20 11:26 WBC 14.8 H RBC 3.72 Hgb 9.7 L Hct 30.2 L MCV 81.2 MCH 26.0 MCHC 32.0 RDW 14.1 Plt Count 449 H MPV 8.6 Absolute Neuts (auto) 13.8 H Neutrophils % 93.1 H Neutrophils % (Manual) 97.0 H Band Neutrophils % 0.0 Lymphocytes % 4.1 L D Lymphocytes % (Manual) 3.0 L Monocytes % 2.3 L Monocytes % (Manual) 0 L Eosinophils % 0.0 Eosinophils % (Manual) 0.0 Basophils % 0.5 Basophils % (Manual) 0.0 Myelocytes % (Man) 0 Promyelocytes % (Man) 0 Blast Cells % (Manual) 0 Nucleated RBC % 0 Metamyelocytes 0 Hypochromia 0 Platelet Estimate Normal Polychromasia 0 Poikilocytosis 0 Anisocytosis 1+ Microcytosis 1+ Macrocytosis 0 Sodium 139 Potassium 4.4 Chloride 104 Carbon Dioxide 28 Anion Gap 7 L BUN 33.1 H Creatinine 1.1 Est GFR (CKD-EPI)AfAm 54.15 Est GFR (CKD-EPI)NonAf 46.72 POC Glucometer 384 Random Glucose 216 H Calcium 8.4 L Phosphorus 4.8 Magnesium 2.1 Total Bilirubin 0.2 AST 11 L ALT 16 Alkaline Phosphatase 68 Total Protein 6.6 Albumin 3.0 L Complement C4 Active Medications Generic Name Dose Route Start Last Admin Trade Name Freq PRN Reason Stop Dose Admin Chlorhexidine Gluconate 1 applic 10/20/19 22:00 10/21/19 21:42 Hibiclens For Decolonization - TP 1 applic HS [facility] Administration Diphenhydramine HCl 25 mg 10/22/19 10:00 10/22/19 10:03 Benadryl - PO Not Given DAILY [facility] Enoxaparin Sodium 40 mg 10/21/19 10:00 10/22/19 09:20 Lovenox - SQ 40 mg DAILY [facility] Administration Insulin Aspart 1 vial 10/20/19 19:57 10/22/19 11:29 Novolog Vial Sliding Scale - SQ 10 units ACHS [facility] Administration Protocol Mupirocin 1 applic 10/20/19 22:00 10/22/19 09:20 Bactroban Ointment (For Decolonization) - NS 10/25/19 21:59 1 applic BID [facility] Administration Prednisone 60 mg 10/22/19 10:00 10/22/19 10:03 Deltasone - PO 60 mg DAILY [facility] Administration ASSESSMENT/PLAN: Marie Gloria is an 84 year old female with a past medical history of hypertension, diabetes mellitus, TIA admitted for angioedema. Angioedema - remains on room air with no evidence of airway compromise - prednisone 60mg daily - Benadryl 25mg IV daily - Famotidine 20mg IV BID - ENT evaluation requested - ICU monitoring on telemetry - received FFP and transexamic acid in the ED - discontinue JOSÉ LUIS inhibitor and listed as allergy - O2ludvefup, C4 pending Hypertension - Hold Lisinopril - will need to restart BP med if becomes hypertensive - JOSÉ LUIS inhibitor now an allergy Diabetes mellitus - Insulin sliding scale Q6H - Fingerstick blood glucose Q6H - HbA1c FEN - no standing fluids, will need to restart if patient remains NPO - continue to monitor electrolytes and replete as necessary - NPO, cautiously restart diet Prophylaxis - Lovenox 40mg subq daily - Famotidine 20mg IV BID Disposition - continue to monitor in ICU Visit type - Emergency Visit Emergency Visit: Yes ED Registration Date: 10/20/19 Care time: The patient presented to the Emergency Department on the above date and was hospitalized for further evaluation of their emergent condition. - New Patient This patient is new to me today: No - Critical Care Critical Care patient: No
--- NOTE | 2019-10-22 14:46 | DS ---
Physical Exam: SUBJECTIVE: Patient seen and examined at the bedside. Patient stated that she was feeling well and was hungry and wanted coffee and something to eat. She denied respiratory distress, shortness of breath, stridor, cp, abd pain, n/v/c/d , dizziness, lightheadedness, skin changes, headaches, fever, chills, numbness, tingling. OBJECTIVE: Vital Signs Period Temp Pulse Resp BP Sys/Mijares Pulse Ox Last 24 Hr 97.7 F-98.0 F 69-96 15-27 111-152/52-95 97-97 PHYSICAL EXAM GENERAL: The patient is awake, alert, and fully oriented, in no acute distress. Lithuanian speaking. HEAD: Normal with no signs of trauma. EYES: PERRL, extraocular movements intact, sclera anicteric, conjunctiva clear. ENT: Oropharynx clear without exudates, moist mucous membranes. Normal sized tongue. NECK: Trachea midline, swelling decreased. Voice normal. No auscultated stridor. Good tracheal breath sounds. LUNGS: Breath sounds equal, clear to auscultation bilaterally, no wheezes, no crackles, no accessory muscle use. HEART: Regular rate and rhythm, S1, S2 without murmur, rub. ABDOMEN: Soft, nontender, nondistended, normoactive bowel sounds, no guarding, no reboundno masses. EXTREMITIES: 2+ pulses, warm, well-perfused, no edema. NEUROLOGICAL: Cranial nerves II through XII grossly intact. 5/5 muscle strength bilaterally, upper and lower extremities. PSYCH: Normal mood, normal affect. SKIN: Warm, dry, normal turgor, no rashes or lesions noted. LABS Laboratory Results - last 24 hr 10/20/19 10/21/19 10/21/19 20:00 17:30 22:12 WBC RBC Hgb Hct MCV MCH MCHC RDW Plt Count MPV Absolute Neuts (auto) Neutrophils % Neutrophils % (Manual) Band Neutrophils % Lymphocytes % Lymphocytes % (Manual) Monocytes % Monocytes % (Manual) Eosinophils % Eosinophils % (Manual) Basophils % Basophils % (Manual) Myelocytes % (Man) Promyelocytes % (Man) Blast Cells % (Manual) Nucleated RBC % Metamyelocytes Hypochromia Platelet Estimate Polychromasia Poikilocytosis Anisocytosis Microcytosis Macrocytosis Sodium Potassium Chloride Carbon Dioxide Anion Gap BUN Creatinine Est GFR (CKD-EPI)AfAm Est GFR (CKD-EPI)NonAf POC Glucometer 156 191 Random Glucose Calcium Phosphorus Magnesium Total Bilirubin AST ALT Alkaline Phosphatase Total Protein Albumin Complement C4 30 10/22/19 10/22/19 10/22/19 05:20 05:20 11:26 WBC 14.8 H RBC 3.72 Hgb 9.7 L Hct 30.2 L MCV 81.2 MCH 26.0 MCHC 32.0 RDW 14.1 Plt Count 449 H MPV 8.6 Absolute Neuts (auto) 13.8 H Neutrophils % 93.1 H Neutrophils % (Manual) 97.0 H Band Neutrophils % 0.0 Lymphocytes % 4.1 L D Lymphocytes % (Manual) 3.0 L Monocytes % 2.3 L Monocytes % (Manual) 0 L Eosinophils % 0.0 Eosinophils % (Manual) 0.0 Basophils % 0.5 Basophils % (Manual) 0.0 Myelocytes % (Man) 0 Promyelocytes % (Man) 0 Blast Cells % (Manual) 0 Nucleated RBC % 0 Metamyelocytes 0 Hypochromia 0 Platelet Estimate Normal Polychromasia 0 Poikilocytosis 0 Anisocytosis 1+ Microcytosis 1+ Macrocytosis 0 Sodium 139 Potassium 4.4 Chloride 104 Carbon Dioxide 28 Anion Gap 7 L BUN 33.1 H Creatinine 1.1 Est GFR (CKD-EPI)AfAm 54.15 Est GFR (CKD-EPI)NonAf 46.72 POC Glucometer 384 Random Glucose 216 H Calcium 8.4 L Phosphorus 4.8 Magnesium 2.1 Total Bilirubin 0.2 AST 11 L ALT 16 Alkaline Phosphatase 68 Total Protein 6.6 Albumin 3.0 L Complement C4 HOSPITAL COURSE: Marie Gloria is an 84 year old female with a past medical history of hypertension, diabetes mellitus, TIA admitted for angioedema. Patient was intubated for airway protection. Given FFP and transexamic acid in the ED. Started on dexamethasone, benadryl, famotidine for airway edema. Edema decreased , patient was extubated, and patient improved. Transitioned to oral medications. Patient was advised not to take lisinopril or any other JOSÉ LUIS or ARB medications. Patient will complete a course of steroid medications (prednisone) , famotidine, and benadryl in the outpatient setting. Patient and family were spoke and advised of the plan to take medications, and follow up with PCP and pulmonology. Daughter at the bedside and patient agreed with the plan and reiterated it. Daughter stated that she will be with the patient on day of discharge to observe for any worsening of the patient's respiratory status. Patient was discharged in stable medical condition. Date of Admission:10/20/19 Date of Discharge: 10/22/19 Minutes to complete discharge: 35 <Vinnie Roberts - Last Filed: 10/22/19 16:40> Physical Exam: SUBJECTIVE: Patient seen and examined OBJECTIVE: Vital Signs Period Temp Pulse Resp BP Sys/Mijares Pulse Ox Last 24 Hr 97.7 F-98.0 F 69-96 15-27 111-152/52-95 97-97 PHYSICAL EXAM GENERAL: The patient is awake, alert, and fully oriented, in no acute distress. HEAD: Normal with no signs of trauma. EYES: PERRL, extraocular movements intact, sclera anicteric, conjunctiva clear. ENT: Ears normal, nares patent, oropharynx clear without exudates, moist mucous membranes. NECK: Trachea midline, full range of motion, supple. LUNGS: Breath sounds equal, clear to auscultation bilaterally, no wheezes, no crackles, no accessory muscle use. HEART: Regular rate and rhythm, S1, S2 without murmur, rub or gallop. ABDOMEN: Soft, nontender, nondistended, normoactive bowel sounds, no guarding, no rebound, no hepatosplenomegaly, no masses. EXTREMITIES: 2+ pulses, warm, well-perfused, no edema. NEUROLOGICAL: Cranial nerves II through XII grossly intact. Normal speech, gait not observed. PSYCH: Normal mood, normal affect. SKIN: Warm, dry, normal turgor, no rashes or lesions noted. LABS Laboratory Results - last 24 hr 10/20/19 10/21/19 10/22/19 20:00 22:12 05:20 WBC RBC Hgb Hct MCV MCH MCHC RDW Plt Count MPV Absolute Neuts (auto) Neutrophils % Neutrophils % (Manual) Band Neutrophils % Lymphocytes % Lymphocytes % (Manual) Monocytes % Monocytes % (Manual) Eosinophils % Eosinophils % (Manual) Basophils % Basophils % (Manual) Myelocytes % (Man) Promyelocytes % (Man) Blast Cells % (Manual) Nucleated RBC % Metamyelocytes Hypochromia Platelet Estimate Polychromasia Poikilocytosis Anisocytosis Microcytosis Macrocytosis Sodium Potassium Chloride Carbon Dioxide Anion Gap BUN Creatinine Est GFR (CKD-EPI)AfAm Est GFR (CKD-EPI)NonAf POC Glucometer 191 Random Glucose Hemoglobin A1c % 7.7 H Calcium Phosphorus Magnesium Total Bilirubin AST ALT Alkaline Phosphatase Total Protein Albumin Complement C4 30 10/22/19 10/22/19 10/22/19 05:20 05:20 11:26 WBC 14.8 H RBC 3.72 Hgb 9.7 L Hct 30.2 L MCV 81.2 MCH 26.0 MCHC 32.0 RDW 14.1 Plt Count 449 H MPV 8.6 Absolute Neuts (auto) 13.8 H Neutrophils % 93.1 H Neutrophils % (Manual) 97.0 H Band Neutrophils % 0.0 Lymphocytes % 4.1 L D Lymphocytes % (Manual) 3.0 L Monocytes % 2.3 L Monocytes % (Manual) 0 L Eosinophils % 0.0 Eosinophils % (Manual) 0.0 Basophils % 0.5 Basophils % (Manual) 0.0 Myelocytes % (Man) 0 Promyelocytes % (Man) 0 Blast Cells % (Manual) 0 Nucleated RBC % 0 Metamyelocytes 0 Hypochromia 0 Platelet Estimate Normal Polychromasia 0 Poikilocytosis 0 Anisocytosis 1+ Microcytosis 1+ Macrocytosis 0 Sodium 139 Potassium 4.4 Chloride 104 Carbon Dioxide 28 Anion Gap 7 L BUN 33.1 H Creatinine 1.1 Est GFR (CKD-EPI)AfAm 54.15 Est GFR (CKD-EPI)NonAf 46.72 POC Glucometer 384 Random Glucose 216 H Hemoglobin A1c % Calcium 8.4 L Phosphorus 4.8 Magnesium 2.1 Total Bilirubin 0.2 AST 11 L ALT 16 Alkaline Phosphatase 68 Total Protein 6.6 Albumin 3.0 L Complement C4 10/22/19 16:37 WBC RBC Hgb Hct MCV MCH MCHC RDW Plt Count MPV Absolute Neuts (auto) Neutrophils % Neutrophils % (Manual) Band Neutrophils % Lymphocytes % Lymphocytes % (Manual) Monocytes % Monocytes % (Manual) Eosinophils % Eosinophils % (Manual) Basophils % Basophils % (Manual) Myelocytes % (Man) Promyelocytes % (Man) Blast Cells % (Manual) Nucleated RBC % Metamyelocytes Hypochromia Platelet Estimate Polychromasia Poikilocytosis Anisocytosis Microcytosis Macrocytosis Sodium Potassium Chloride Carbon Dioxide Anion Gap BUN Creatinine Est GFR (CKD-EPI)AfAm Est GFR (CKD-EPI)NonAf POC Glucometer 313 Random Glucose Hemoglobin A1c % Calcium Phosphorus Magnesium Total Bilirubin AST ALT Alkaline Phosphatase Total Protein Albumin Complement C4 HOSPITAL COURSE: Date of Admission:10/20/19 Date of Discharge: 10/22/19 <Roberth Pack - Last Filed: 10/22/19 17:47> Discharge Summary Problems reviewed: Yes Reason For Visit: ANGIOEDEMA - Home Medications Comprehensive Discharge Medication List: Ambulatory Orders Amlodipine Besylate 5 mg PO DAILY 09/01/19 Aspirin [ASA -] 81 mg PO DAILY 09/01/19 Metformin HCl [Glucophage] 500 mg PO BID 09/01/19 Simvastatin 20 mg PO HS 09/01/19 Tramadol HCl 50 mg PO TID 09/01/19 Memantine HCl/Donepezil HCl [Namzaric 21 mg-10 mg Capsule] 1 each PO DAILY 10/21 Diphenhydramine HCl [Benadryl Capsule -] 25 mg PO DAILY #3 capsule 10/22/19 Famotidine 20 mg PO DAILY #3 tablet 10/22/19 Hydrochlorothiazide [Hctz -] 12.5 mg PO DAILY #30 cap 10/22/19 predniSONE [Deltasone -] 60 mg PO DAILY #9 tablet 10/22/19 <Vinnie Roberts - Last Filed: 10/22/19 16:40> - Home Medications Comprehensive Discharge Medication List: Ambulatory Orders Amlodipine Besylate 5 mg PO DAILY 09/01/19 Aspirin [ASA -] 81 mg PO DAILY 09/01/19 Metformin HCl [Glucophage] 500 mg PO BID 09/01/19 Simvastatin 20 mg PO HS 09/01/19 Tramadol HCl 50 mg PO TID 09/01/19 Memantine HCl/Donepezil HCl [Namzaric 21 mg-10 mg Capsule] 1 each PO DAILY 10/21 Diphenhydramine HCl [Benadryl Capsule -] 25 mg PO DAILY #3 capsule 10/22/19 Famotidine 20 mg PO DAILY #3 tablet 10/22/19 Hydrochlorothiazide [Hctz -] 12.5 mg PO DAILY #30 cap 10/22/19 predniSONE [Deltasone -] 60 mg PO DAILY #9 tablet 10/22/19 <Roberth Pack - Last Filed: 10/22/19 17:47> Condition: Stable - Instructions Diet, Activity, Other Instructions: You were in the hospital because of increased swelling in your throat which cause you to have difficulty breathing. You had a breathing tube that helped with your breathing and were given medications to decrease the swelling you had. You will complete a course of medication to help with the swelling. MEDICATIONS STOP taking lisinopril. DO NOT EVER TAKE AN JOSÉ LUIS INHIBITOR OR ANGIOTENSION II RECEPTOR AMADOU MEDICATIONS. START to take prednisone 60mg (3 20mg tablets) once a day for 3 days. Your last dose will be on October 25. START to take Bendaryl 25mg once a day for 3 days. Your last dose will be on October 25. START to take famotidine 20mg once a day for 3 days. Your last dose will be on October 25. START to take hydrochlorothiazide 12.5mg once daily REFERRALS Please follow up with your primary care doctor, Dr. Joshua Nuñez, within 1 week. Please follow up with the network operations technician, Dr. Mark Anthony Encinas, within 1 week. SPECIAL INSTRUCTIONS Do not take lisinopril or other JOSÉ LUIS inhibitor or ARB medications as they can make the swelling in your neck return. Please follow up with your primary care doctor about what medications you may take for your high blood pressure. If you have any symptoms of difficulty breathing, increased swelling in your mouth, neck, or throat, difficulty swallowing, chest pain, fevers, increased salivation, please call 911 or go to your nearest emergency room. Referrals: Joshua Nuñez MD [Primary Care Provider] - 1 Week Mark Anthony Encinas MD, MD [Staff Physician] - 1 Week Disposition: HOME Problem List - Problems (1) Angioedema Code(s): T78.3XXA - ANGIONEUROTIC EDEMA, INITIAL ENCOUNTER (2) Diabetes Code(s): E11.9 - TYPE 2 DIABETES MELLITUS WITHOUT COMPLICATIONS (3) HTN (hypertension) Code(s): I10 - ESSENTIAL (PRIMARY) HYPERTENSION (4) Transient ischemic attack Code(s): G45.9 - TRANSIENT CEREBRAL ISCHEMIC ATTACK, UNSPECIFIED <Vinnie Roberts - Last Filed: 10/22/19 16:40> This patient is new to me today: No Emergency Visit: Yes ED Registration Date: 10/20/19 Care time: The patient presented to the Emergency Department on the above date and was hospitalized for further evaluation of their emergent condition. Critical Care patient: No - Discharge Referral Referred to [facility] No <Vinnie Roberts - Last Filed: 10/22/19 16:40> ATTENDING PHYSICIAN STATEMENT I saw and evaluated the patient. I reviewed the resident's note and discussed the case with the resident. I agree with the resident's findings and plan as documented. SUBJECTIVE: OBJECTIVE: ASSESSMENT AND PLAN: <Roberth Pack - Last Filed: 10/22/19 17:47>
--- NOTE | 2019-10-22 18:55 | PN ---
Physical Exam: SUBJECTIVE: Patient seen and examined at bedside. Edema has resolved. OBJECTIVE: Vital Signs Period Temp Pulse Resp BP Sys/Mijares Pulse Ox Last 24 Hr 97.7 F-98.0 F 69-96 15-27 116-152/52-95 97-97 GENERAL: lying in bed alert oriented HEENT: no oral edema/ no edema of oropharynx LUNGS: CTABL HEART: Regular rate and rhythm, S1, S2 without murmur, rub or gallop. ABDOMEN: Soft, nontender, nondistended, normoactive bowel sounds EXTREMITIES: 2+ pulses, warm, well-perfused, no edema. Laboratory Results - last 24 hr 10/20/19 10/21/19 10/22/19 20:00 22:12 05:20 WBC RBC Hgb Hct MCV MCH MCHC RDW Plt Count MPV Absolute Neuts (auto) Neutrophils % Neutrophils % (Manual) Band Neutrophils % Lymphocytes % Lymphocytes % (Manual) Monocytes % Monocytes % (Manual) Eosinophils % Eosinophils % (Manual) Basophils % Basophils % (Manual) Myelocytes % (Man) Promyelocytes % (Man) Blast Cells % (Manual) Nucleated RBC % Metamyelocytes Hypochromia Platelet Estimate Polychromasia Poikilocytosis Anisocytosis Microcytosis Macrocytosis Sodium Potassium Chloride Carbon Dioxide Anion Gap BUN Creatinine Est GFR (CKD-EPI)AfAm Est GFR (CKD-EPI)NonAf POC Glucometer 191 Random Glucose Hemoglobin A1c % 7.7 H Calcium Phosphorus Magnesium Total Bilirubin AST ALT Alkaline Phosphatase Total Protein Albumin Complement C4 30 10/22/19 10/22/19 10/22/19 05:20 05:20 11:26 WBC 14.8 H RBC 3.72 Hgb 9.7 L Hct 30.2 L MCV 81.2 MCH 26.0 MCHC 32.0 RDW 14.1 Plt Count 449 H MPV 8.6 Absolute Neuts (auto) 13.8 H Neutrophils % 93.1 H Neutrophils % (Manual) 97.0 H Band Neutrophils % 0.0 Lymphocytes % 4.1 L D Lymphocytes % (Manual) 3.0 L Monocytes % 2.3 L Monocytes % (Manual) 0 L Eosinophils % 0.0 Eosinophils % (Manual) 0.0 Basophils % 0.5 Basophils % (Manual) 0.0 Myelocytes % (Man) 0 Promyelocytes % (Man) 0 Blast Cells % (Manual) 0 Nucleated RBC % 0 Metamyelocytes 0 Hypochromia 0 Platelet Estimate Normal Polychromasia 0 Poikilocytosis 0 Anisocytosis 1+ Microcytosis 1+ Macrocytosis 0 Sodium 139 Potassium 4.4 Chloride 104 Carbon Dioxide 28 Anion Gap 7 L BUN 33.1 H Creatinine 1.1 Est GFR (CKD-EPI)AfAm 54.15 Est GFR (CKD-EPI)NonAf 46.72 POC Glucometer 384 Random Glucose 216 H Hemoglobin A1c % Calcium 8.4 L Phosphorus 4.8 Magnesium 2.1 Total Bilirubin 0.2 AST 11 L ALT 16 Alkaline Phosphatase 68 Total Protein 6.6 Albumin 3.0 L Complement C4 10/22/19 16:37 WBC RBC Hgb Hct MCV MCH MCHC RDW Plt Count MPV Absolute Neuts (auto) Neutrophils % Neutrophils % (Manual) Band Neutrophils % Lymphocytes % Lymphocytes % (Manual) Monocytes % Monocytes % (Manual) Eosinophils % Eosinophils % (Manual) Basophils % Basophils % (Manual) Myelocytes % (Man) Promyelocytes % (Man) Blast Cells % (Manual) Nucleated RBC % Metamyelocytes Hypochromia Platelet Estimate Polychromasia Poikilocytosis Anisocytosis Microcytosis Macrocytosis Sodium Potassium Chloride Carbon Dioxide Anion Gap BUN Creatinine Est GFR (CKD-EPI)AfAm Est GFR (CKD-EPI)NonAf POC Glucometer 313 Random Glucose Hemoglobin A1c % Calcium Phosphorus Magnesium Total Bilirubin AST ALT Alkaline Phosphatase Total Protein Albumin Complement C4 Active Medications Generic Name Dose Route Start Last Admin Trade Name Freq PRN Reason Stop Dose Admin Chlorhexidine Gluconate 1 applic 10/20/19 22:00 10/21/19 21:42 Hibiclens For Decolonization - TP 1 applic HS GABE Administration Diphenhydramine HCl 25 mg 10/22/19 10:00 10/22/19 10:03 Benadryl - PO Not Given DAILY GABE Enoxaparin Sodium 40 mg 10/21/19 10:00 10/22/19 09:20 Lovenox - SQ 40 mg DAILY GABE Administration Insulin Aspart 1 vial 10/20/19 19:57 10/22/19 16:41 Novolog Vial Sliding Scale - SQ 8 units ACHS GABE Administration Protocol Mupirocin 1 applic 10/20/19 22:00 10/22/19 09:20 Bactroban Ointment (For Decolonization) - NS 10/25/19 21:59 1 applic BID GABE Administration Prednisone 60 mg 10/22/19 10:00 10/22/19 10:03 Deltasone - PO 60 mg DAILY GABE Administration ASSESSMENT/PLAN: 84 y.o. F PMH HTN, type 2 DM who presented for angioedema. #CV -hx htn -d/c'd home anti-HTN as ACEi likely contributed to current presentation #Pulm -Extubated 10/21 -transitioned to PO prednisone -continue benadryl -airway edema resolved maintain o2sat >90% -f/u C1 esterase inhib concentration, C4 WNL -aspiration precautions -ENT-- no acute intervention @ this time, monitor edema #Heme/Onc -normocytic anemia -monitor h&h-- stable #Endo -ISS -BGMs ACHS -Holding home oral agents #PPX -lovenox 40U sq daily #FEN -no standing fluids -monitor bmp replete lytes prn -tolerating soft diet Visit type - Emergency Visit Emergency Visit: No - New Patient This patient is new to me today: No - Critical Care Critical Care patient: No Total Critical Care Time (in minutes): 36 Critical Care Statement: The care of this patient involved high complexity decision making to prevent further life threatening deterioration of the patient 's condition and/or to evaluate & treat vital organ system(s) failure or risk of failure. ATTENDING PHYSICIAN STATEMENT I saw and evaluated the patient. I reviewed the resident's note and discussed the case with the resident. I agree with the resident's findings and plan as documented. SUBJECTIVE: OBJECTIVE: ASSESSMENT AND PLAN:
[2019-10-22] MEDS: CHLORHEXIDINE GLUCONATE 4% CLEANSER FOR DECOLONIZATION TP SCH (21:22)
[2019-10-23] MEDS: INSULIN SLIDING SCALE (NOVOLOG) 1 VIAL SQ SCH (06:26)
[2019-10-23 07:37] LABS: BLOOD UREA NITROGEN 34.6 mg/dL (7-18); CALCIUM 8.6 mg/dL (8.5-10.1); CREATININE 1.2 mg/dL (0.55-1.3); POTASSIUM 4.3 mmol/L (3.5-5.1)
[2019-10-23] MEDS: ENOXAPARIN NA (PORCINE) 40 MG/0.4 ML DISP.SYRIN SQ SCH (09:15)
[2019-10-23] MEDS: diphenhydrAMINE HCL 25 MG CAPSULE (FP) PO SCH (09:15)
[2019-10-23] MEDS: predniSONE 20 MG TABLET (UD) PO SCH (09:15)
[2019-10-23] MEDS: MUPIROCIN 2% TOPICAL OINTMENT FOR DECOLONIZATION NS SCH (09:16)
--- NOTE | 2019-10-23 11:36 | PN ---
Teaching Attending Note Name of Resident: Caroline Mukherjee ATTENDING PHYSICIAN STATEMENT I saw and evaluated the patient. I reviewed the resident's note and discussed the case with the resident. I agree with the resident's findings and plan as documented. SUBJECTIVE: Pt seen and examined in the ICU. Speech back to baseline. Denies shortness of breath or dysphagia. OBJECTIVE: Vital Signs Period Temp Pulse Resp BP Sys/Mijares Pulse Ox Last 24 Hr 97.8 F-98.2 F 62-82 18-23 136-167/59-115 97-97 Intake & Output 10/20/19 10/21/19 10/22/19 10/23/19 23:59 23:59 23:59 23:59 Intake Total 300 775 470 120 Balance 300 775 470 120 Weight 52.163 kg 52.163 kg Gen: NAD at rest Heart: RRR Lung: decreased breath sounds at the bases Abd: soft, nontender Ext: no edema CBC, BMP 10/22/19 05:20 10/23/19 05:15 Active Medications Chlorhexidine Gluconate (Hibiclens For Decolonization -) 1 applic TP HS [facility] Last Admin: 10/22/19 21:22 Dose: 1 applic Diphenhydramine HCl (Benadryl -) 25 mg PO DAILY [facility] Last Admin: 10/23/19 09:15 Dose: 25 mg Enoxaparin Sodium (Lovenox -) 40 mg SQ DAILY [facility] Last Admin: 10/23/19 09:15 Dose: 40 mg Insulin Aspart (Novolog Vial Sliding Scale -) 1 vial SQ ACHS [facility]; Protocol Last Admin: 10/23/19 06:26 Dose: 2 units Mupirocin (Bactroban Ointment (For Decolonization) -) 1 applic NS BID [facility] Stop: 10/25/19 21:59 Last Admin: 10/23/19 09:16 Dose: 1 applic Prednisone (Deltasone -) 60 mg PO DAILY [facility] Last Admin: 10/23/19 09:15 Dose: 60 mg ASSESSMENT AND PLAN: s/p Acute Respiratory Failure Angioedema likely to JOSÉ LUIS-I HTN DM Hyperlipidemia Dementia Anemia - can d/c steroids - PO as tolerated - O2 to keep Spo2 >90% - DVT prophylaxis - can d/c home
[2019-10-23 11:43] VITALS: BP 168/70; PULSE 68; TEMP 98.3
--- NOTE | 2019-10-23 11:53 | PN ---
Physical Exam: SUBJECTIVE: Patient seen and examined at the bedside. Patient states she is doing well and is eager to go home. Endorses good appetite. Denies cough, shortness of breath, stridor, wheezing, cp, abd pain, n/v/c/d, dizziness, lightheadedness, headaches. OBJECTIVE: Vital Signs Period Temp Pulse Resp BP Sys/Mijares Pulse Ox Last 24 Hr 97.8 F-98.3 F 62-82 18-23 136-168/59-115 97-97 GENERAL: The patient is awake, alert, and fully oriented, in no acute distress. Serbian speaking. HEAD: Normal with no signs of trauma. EYES: PERRL, extraocular movements intact, sclera anicteric, conjunctiva clear. ENT: Oropharynx clear without exudates, moist mucous membranes. Normal sized tongue. NECK: Trachea midline, swelling decreased. Voice normal. No auscultated stridor. Good tracheal breath sounds. LUNGS: Breath sounds equal, clear to auscultation bilaterally, no wheezes, no crackles, no accessory muscle use. HEART: Regular rate and rhythm, S1, S2 without murmur, rub. ABDOMEN: Soft, nontender, nondistended, normoactive bowel sounds, no guarding, no reboundno masses. EXTREMITIES: 2+ pulses, warm, well-perfused, no edema. NEUROLOGICAL: Cranial nerves II through XII grossly intact. 5/5 muscle strength bilaterally, upper and lower extremities. PSYCH: Normal mood, normal affect. SKIN: Warm, dry, normal turgor, no rashes or lesions noted. Laboratory Results - last 24 hr 10/22/19 10/22/19 10/22/19 05:20 16:37 21:30 Sodium Potassium Chloride Carbon Dioxide Anion Gap BUN Creatinine Est GFR (CKD-EPI)AfAm Est GFR (CKD-EPI)NonAf POC Glucometer 313 316 Random Glucose Hemoglobin A1c % 7.7 H Calcium 10/23/19 10/23/19 05:15 05:33 Sodium 142 Potassium 4.3 Chloride 104 Carbon Dioxide 28 Anion Gap 10 BUN 34.6 H Creatinine 1.2 Est GFR (CKD-EPI)AfAm 48.74 Est GFR (CKD-EPI)NonAf 42.05 POC Glucometer 155 Random Glucose 154 H Hemoglobin A1c % Calcium 8.6 Active Medications Generic Name Dose Route Start Last Admin Trade Name Freq PRN Reason Stop Dose Admin Chlorhexidine Gluconate 1 applic 10/20/19 22:00 10/22/19 21:22 Hibiclens For Decolonization - TP 1 applic HS GABE Administration Diphenhydramine HCl 25 mg 10/22/19 10:00 10/23/19 09:15 Benadryl - PO 25 mg DAILY GABE Administration Enoxaparin Sodium 40 mg 10/21/19 10:00 10/23/19 09:15 Lovenox - SQ 40 mg DAILY GABE Administration Insulin Aspart 1 vial 10/20/19 19:57 10/23/19 06:26 Novolog Vial Sliding Scale - SQ 2 units ACHS GABE Administration Protocol Mupirocin 1 applic 10/20/19 22:00 10/23/19 09:16 Bactroban Ointment (For Decolonization) - NS 10/25/19 21:59 1 applic BID GABE Administration Prednisone 60 mg 10/22/19 10:00 10/23/19 09:15 Deltasone - PO 60 mg DAILY GABE Administration ASSESSMENT/PLAN: Marie Gloria is an 84 year old female with a past medical history of hypertension, diabetes mellitus, TIA admitted for angioedema. Patient was stable for discharge and remained for assessment of her mobility. Patient was observed walking by the ICU staff and noted to be stable. No changes in her medical status and patient remained stable for discharge and will go home with observation by family. Problem List - Problems (1) Angioedema Code(s): T78.3XXA - ANGIONEUROTIC EDEMA, INITIAL ENCOUNTER (2) Diabetes Code(s): E11.9 - TYPE 2 DIABETES MELLITUS WITHOUT COMPLICATIONS (3) HTN (hypertension) Code(s): I10 - ESSENTIAL (PRIMARY) HYPERTENSION (4) Transient ischemic attack Code(s): G45.9 - TRANSIENT CEREBRAL ISCHEMIC ATTACK, UNSPECIFIED Visit type - Emergency Visit Emergency Visit: Yes ED Registration Date: 10/20/19 Care time: The patient presented to the Emergency Department on the above date and was hospitalized for further evaluation of their emergent condition. - New Patient This patient is new to me today: No - Critical Care Critical Care patient: No
--- NOTE | 2019-10-23 12:29 | PN ---
Progress Note, [employer] ESTIMATOR - Note Progress Note: Selected Entries 10/22/19 10/22/19 10/22/19 06:00 10:00 14:00 Supper NPO Temperature 98.0 F 97.7 F 97.8 F 10/22/19 10/23/19 22:00 10:00 Supper 75% Temperature 98.2 F 98.3 F Voice more euphonic. Tolerating diet. No further f/u indicated
--- NOTE | 2019-10-23 16:28 | PN ---
Physical Exam: SUBJECTIVE: Patient seen and examined in the morning. No acute events overnight , patient was stable for d/c yesterday but was pending PT evaluation. No complaints of chest pain, shortness of breath, nausea, vomiting, diarrhea. OBJECTIVE: Vital Signs Period Temp Pulse Resp BP Sys/Mijares Pulse Ox Last 24 Hr 98.2 F-98.3 F 62-81 20-22 147-168/59-115 97-97 GENERAL: The patient is awake, alert, and fully oriented, in no acute distress. HEAD: Normal with no signs of trauma. NECK: Trachea midline, swelling decreased. Voice normal. No auscultated stridor. Good tracheal breath sounds. LUNGS: Breath sounds equal, clear to auscultation bilaterally, no wheezes, no crackles, no accessory muscle use. HEART: Regular rate and rhythm, S1, S2 without murmur, rub. ABDOMEN: Soft, nontender, nondistended, normoactive bowel sounds, no guarding, no reboundno masses. EXTREMITIES: 2+ pulses, warm, well-perfused, no edema. NEUROLOGICAL: Cranial nerves II through XII grossly intact. 5/5 muscle strength bilaterally, upper and lower extremities. PSYCH: Normal mood, normal affect. SKIN: Warm, dry, normal turgor, no rashes or lesions noted. Laboratory Results - last 24 hr 10/22/19 10/22/19 10/22/19 05:20 16:37 21:30 Sodium Potassium Chloride Carbon Dioxide Anion Gap BUN Creatinine Est GFR (CKD-EPI)AfAm Est GFR (CKD-EPI)NonAf POC Glucometer 313 316 Random Glucose Hemoglobin A1c % 7.7 H Calcium 10/23/19 10/23/19 05:15 05:33 Sodium 142 Potassium 4.3 Chloride 104 Carbon Dioxide 28 Anion Gap 10 BUN 34.6 H Creatinine 1.2 Est GFR (CKD-EPI)AfAm 48.74 Est GFR (CKD-EPI)NonAf 42.05 POC Glucometer 155 Random Glucose 154 H Hemoglobin A1c % Calcium 8.6 ASSESSMENT/PLAN: 84 y.o. F PMH HTN, type 2 DM who presented for angioedema. Cardiovascular -hx htn -d/c'd home anti-HTN as ACEi likely contributed to current presentation Pulmonary -Extubated 10/21 -transitioned to PO prednisone -continue benadryl -airway edema resolved maintain o2sat >90% -f/u C1 esterase inhib concentration, C4 WNL -aspiration precautions -ENT-- no acute intervention @ this time, monitor edema Heme/Onc -normocytic anemia -monitor h&h-- stable Endocrine -ISS -BGMs ACHS -Holding home oral agents DVT PPX: Lovenox F: Oral hydration E: Monitor Lytes N: Regular diet DVT: D/C to home Visit type - Emergency Visit Emergency Visit: Yes ED Registration Date: 10/20/19 Care time: The patient presented to the Emergency Department on the above date and was hospitalized for further evaluation of their emergent condition. - New Patient This patient is new to me today: No - Critical Care Critical Care patient: Yes Total Critical Care Time (in minutes): 45 Critical Care Statement: The care of this patient involved high complexity decision making to prevent further life threatening deterioration of the patient 's condition and/or to evaluate & treat vital organ system(s) failure or risk of failure. ATTENDING PHYSICIAN STATEMENT I saw and evaluated the patient. I reviewed the resident's note and discussed the case with the resident. I agree with the resident's findings and plan as documented. SUBJECTIVE: OBJECTIVE: ASSESSMENT AND PLAN:
[2019-10-28 18:07] LABS: C1Q COMPLEMENT QUANT 11.2 mg/dL (10.3-20.5)
== END 2019-10-23 12:31 | disposition home or self-care (01) | DRG 208 ==
LOC: JER 12:52 → JERBED 16:52 → JICU 17:29
PROVIDERS: ATTEND Internal Medicine
PROC: 5A1945Z Respiratory Ventilation, 24-96 Consecutive Hours (ICD-10-PCS; principal; 2019-10-20)
PROC: 0BH17EZ Insertion of Endotracheal Airway into Trachea, Via Natural or Artificial Opening (ICD-10-PCS; 2019-10-20)
PROC: 30233L1 Transfusion of Nonautologous Fresh Plasma into Peripheral Vein, Percutaneous Approach (ICD-10-PCS; 2019-10-20)
PROC: 30233K1 Transfusion of Nonautologous Frozen Plasma into Peripheral Vein, Percutaneous Approach (ICD-10-PCS; 2019-10-20)
DX: J96.01 Acute respiratory failure with hypoxia (principal); T78.3XXA Angioneurotic edema, initial encounter; T46.4X5A Adverse effect of angiotensin-converting-enzyme inhibitors, initial encounter; I10 Essential (primary) hypertension; E11.9 Type 2 diabetes mellitus without complications; D64.9 Anemia, unspecified; E78.5 Hyperlipidemia, unspecified; G30.9 Alzheimer's disease, unspecified; F02.80 Dementia in other diseases classified elsewhere, unspecified severity, without behavioral disturbance, psychotic disturbance, mood disturbance, and anxiety
CPT/HCPCS: 36415; 36430; 71045-TC-FY; 80048; 80053; 82962; 83036; 83735; 84100; 85025; 85651; 86140; 86160; 86161; 86850; 86900; 86901; 93005; 93010; 94002; 97116-GP; 97161-GP; 99285-25; J1100; P9017

== ENCOUNTER 2020-08-28 15:30 | Emergency (ER) | payer OTHER | END 2020-08-28 15:54 | disposition home or self-care (01) | LOC: JVIRT 15:30 | DX: Z03.818 Encounter for observation for suspected exposure to other biological agents ruled out (principal) | CPT/HCPCS: C9803; Q3014-GT; U0003 ==